=== PATIENT | female | born 1990 | race Caucasian/White ===

== ENCOUNTER 2023-11-08 10:50 | Inpatient (IN) ==
[2023-11-08] MEDS ORDERED: BUTORPHANOL TARTRATE 2 MG/ML VIAL IV PRN (11:38)
[2023-11-08] MEDS ORDERED: LIDOCAINE 1% LOCAL 20 ML VIAL INFIL PRN (11:38)
[2023-11-08] MEDS ORDERED: ACETAMINOPHEN 325 MG TAB PO PRN (11:38)
--- NOTE | 2023-11-08 11:45 | History & Physical Report ---
Date of Service November 08, 2023 Assessment & Plan (1) premature rupture of membranes: Plan: 32-year-old G1, P0 at 37 weeks and 1 day gestation presenting today with premature rupture of membranes since 6:30 AM this morning, Vital signs stable afebrile, No signs of active labor, heart rate reassuring, GBS negative, Plan to admit, monitor, labs, discussed induction of labor and agents as IV oxytocin versus p.o. prostaglandin, discussed the difference and ambulation during labor. She desires to ambulate and prefers p.o. Cytotec, All questions were answered. (2) Obesity affecting in third trimester, antepartum: (3) History of migraine: History of Present Illness Primary Care Provider: Radha Hawthorne DO Patient is a 32-year-old G1, P0 at 37 weeks and 1 day gestation who has been leaking since 6:30 AM this morning. It happens when she moves around spontaneously and has been between clear and pinkish in color. She soaked about 3 pads this morning. She denies contractions or abdominal pain, fever chills, headaches, change in her vision, nausea vomiting. Her has been uncomplicated except, 1. Obesity during , 2. history of Migraines, 3. removed history of asthma, childhood no recent medication use. 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 no history of STDs, no history of chlamydia, gonorrhea, herpes Review of Systems as per Subjective / HPI Physical Exam Constitutional: WD/WN, vitals as above Gastrointestinal (Abdomen): normal bowel sounds, soft, nontender, no hepatosplenomegaly Genitourinary: normal external appearance OB Exam Abdomen: + vertex Manual OB Exam: + cervical dilation 1 cm, + cervical effacement 50% and + station -2 OB Exam Monitor Tracing: + external uterine monitor used and + category I AmniSure positive Results & Data Vital Signs (Past 12 Hours) Vital Signs Pulse BP 11/08/23 11:06 85 128/73 (1) premature rupture of membranes PROM onset of labor timing: unspecified duration between rupture of membranes and onset of labor Qualified Code(s): O42.919 - premature rupture of membranes, unspecified as to length of time between rupture and onset of labor, unspecified trimester (2) Obesity affecting in third trimester, antepartum Obesity type affecting : other obesity Qualified Code(s): O99.213 - Obesity complicating , third trimester; E66.8 - Other obesity
[2023-11-08] MEDS ORDERED: OXYTOCIN 30 UNITS/NSS 30 UNITS/500 ML BAG IV PRN (11:46)
[2023-11-08] MEDS: LACTATED RINGER'S 1,000 ML IV PRN (12:00)
[2023-11-08 12:02] LABS: Hematocrit (blood only) 32.9 % (37.0-47.0); Mean Corpuscular Hemoglobin 30.2 pg (25.0-34.0); Mean Corpuscular Hgb Conc 33.4 g/dL (32.0-36.0); Mean Corpuscular Volume 90.4 fL (80.0-100.0); Mean Platelet Volume 12.7 fL (9.4-12.4); Platelet Count 227 K/uL (130-400); RDW Standard Deviation 42.7 fL (36.4-46.3); Red Blood Count 3.64 M/uL (4.20-5.40); White Blood Count 11.92 K/ul (4.8-10.8)
[2023-11-08] MEDS: miSOPROStoL 50 MCG TAB PO SCH (13:59)
--- OUTSIDE RECORDS SUMMARY | 2023-11-08 13:59 | External Medical Summary | Summary of Care ---
Author Name Unknown Organization [facility] Address [address] [place] [address] Phone [phone] Care Team Providers Care Automatic Embroidery Machine Tender Name Role Phone John PaulRadha fox Manju DO Primary Care Provider [phone] Reason for Visit * Reason Comments NEW PATIENT Encounter Details Date Type Department Care Team (Late st Contact Info) Description 10/28/2023 12:30 PM EDT Office Visit Gynecology/Obstetric s [facility] [address] [place] [address] Kim Atkinson CRNP [address] [place] [address] Decreased movements in third trimester, single or unspecified fetus*; Supervision of normal first , antepartum; Obesity affecting in third trimester, unspecified obesity type Allergies No known active allergiesdocumented as of this encounter (statuses as of 10/28/2023) Medications Medication Sig Dispensed Refills Start Date End Date Status Albuterol Sulfate HFA 108 (90 Base) MCG/ACT Inhalation Aerosol SolutionIndications: Dyspnea Inhale 2 Puffs by mouth 4 times a day as needed for Shortness of Breath. 18 g 5 11/22/2020 Active Famotidine 40 MG Oral Tablet (Pepcid) Take 1 Tablet by mouth at bedtime. 90 Tablet 3 01/17/2023 Active 28-0.8 MG Oral Tablet Take by mouth. Active Mag-200 200 MG Oral Tablet (Magnesium Oxide -Mg Supplement) Take by mouth. Active documented as of this encounter (statuses as of 10/28/2023) Active Problems Problem Noted Date Diagnosed Date Anxiety 07/11/2023 Supervision of normal first , antepartu m 04/23/2023 Obesity affecting 04/23/2023 Overview: Class 1 The patient's pre-gravid BMI is 31.74. Iron deficiency anemia 01/17/2023 KAVIN (generalized anxiety disorder) 01/17/2023 Screening for lipid disorders 01/17/2023 Intractable chronic migraine without aura and without status migrainosus 10/16/2021 Cervicalgia 10/16/2021 Morbid obesity due to excess calories 03/09/2021 Mild intermittent asthma without complication Gastroesophageal reflux disease without esophagi tis 03/21/2019 Other atopic dermatitis 11/26/2017 Migraine without aura 01/07/2004 Overview: Nortriptyline caused agitation Estimated Date of Delivery Comme nts Yes 11/23/2023 Based on last me nstrual period of 02/16/2023 (Approximate) documented as of this encounter (statuses as of 10/28/2023) Resolved Problems Problem Noted Date Diagnosed Date Resolved Date Body mass index (BMI) of 40. 0 to 44.9 in adult 11/14/2020 10/04/2023 Overview: Per Obesity protocol Chronic cholecystitis 07/06/20132018 Infectious mononucleosis 07/18/2011 OBESITY, PEDIATRIC, BMI 95-98TH PERCENTILE 05/26/2009 10/17/2017 Overview: Per Obesity Taxonomy Family history of diabetes mellitus 11/30/2008 10/17/2017 ADVANCE DIRECTIVE INFORMATION 02/09/2005 10/17/2017 Overview: Not applicable (under age of 18) OBESITY, UNSPECIFIED 02/09/2005 010 Overview: Per Obesity Taxonomy OTALGIA, RIGHT 11/24/2001 10/17/2017 DYSFUNCT EUSTACHIAN TUBE 11/24/2001 ACUTE URI NOS 11/24/2001 04/22/2008 Overview: Resolved per Benign Acute Dxs Protocol #3 NO SIGNIFICANT MED HX 2017 documented as of this encounter (statuses as of 10/28/2023) Immunizations Name Administration Dates Next Due DTaP Dipth/Tet/Acell Pertussis (Infanrix), Peds 01/19/1997,03/12/1994,06/12/1993,04/17,02/13/1993 HPV Vaccine, 4-Valent 01/21/2007,09/11/2006,11/2006 Haemophilius B (HIB), unspecified 1994,06/12/1993,04/17/1993,02/13 Hepatitis B Vaccine 10/01/1994,06/20/1993,1992 MMR - Measles/Mumps/Rubella Vaccine 01/19/1997,0 03/12/1994 Meningococcal Conjugate Vacc ine (Menactra/Menveo) 05/13/2007 OPV - Polio Virus Vaccine (Oral) 997,03/12/1994,04/17/1993,02/13 PPD 12/24/2018, 9,01/15/2017,07/24 TD, Preservative Free 06/06/2009 TDAP (age 10 and older)(Boostrix) 09/19/2023,,02/09/2005 Varicella Vaccine (Chicken Pox) 05/13/2007,10/01 documented as of this encounter Social History Tobacco Use Types Packs/Day Years Used Date Smoking Tobacco: Never Smokeless Tobacco: Never Comments:Non-smoking househo ld. Alcohol Use Standard Drinks/Week Comments Not Currently 0 (1 standard drink = 0.6 oz pur e alcohol) occassional PHQ-2 Answer Date Recorded PHQ Adult Total Score 1 10/16/2021 Hunger Vital Sign Answer Date Recorded Within the past 12 months, y ou worried that your food would run out before you got the money to buy more. Never true 04/23/19 24 Within the past 12 months, t he food you bought just didn't last and you didn't have money to get more. Never true 04/23/2023 [place] Depression Scale Answer Date Recorded [place] Depression Scale Total 7 08/30/2023 The thought of harming myself has occurred to me . Never 08/30/2023 Childcare Answer Date Recorded Do you feel overwhelmed with taking care of a child, family member or friend? No 04/23/2023 Does your family need help f inding childcare? (Household - for ages 0-17 years) Not on file 04/23/2023 Clothing Answer Date Recorded Have you been unable to get clothing when it was really needed? No 04/23/2023 Is your family able to get c lothes or diapers when needed? (Household - for ages 0-17 years) Not on file 04/23/2023 Personal Safety Answer Date Recorded Do you feel unsafe or have concerns for your saf ety? No 04/23/2023 Do you have concerns for you r family's safety? (Household - for ages 0-17 years) Not on file 04/23/2023 Utilities Answer Date Recorded Do you have trouble paying y our heating, water, or electric bill? No 04/23/2023 Is your family able to pay t he heat, water, or electric bill? (Household - for ages 0-17 years) Not on file 04/23/2023 Does your family have access to good internet? (Household - for ages 0-17 years) Not on file 04/23/2023 Employment Status Answer Date Recorded Are you unemployed or without regular income? No 04/23/2023 Does the [facility] have a [facility] source [facility] income? (Household - for ages 0-17 years) Not on file 04/23/2023 Social Connections Answer Date Recorded How often do you feel lonely or isolated from th ose around you? Never 04/23/2023 Financial Resource Strain Answer Date R ecorded Do you have any trouble payi ng for your medications, or do you think you might in the future? No 04/23/2023 Does your family have troubl e paying for medicine? (Household - for ages 0-17 years) Not on file 04/23/2023 Transportation Needs Answer Date Record ed READ ONLY Do you have troubl e getting a ride to medical visits or work? Never True 04/23/2023 Does your family have a hard time getting a ride to doctors visits? (Household - for ages 0-17 years) Not on file 04/23/2023 Has lack of transportation k ept you from medical appointments, meetings, work, or from getting things needed for daily living? Check all that apply. (Adult - for ages 18 years and over) Not on file 04/23/2023 Do you (or your family) have trouble finding or paying for a ride (transportation)? (Household - for ages 0-17 years) Not on file 04/23/2023 Housing Stability Answer Date Recorded Do you currently live in a s helter or have no steady place to sleep at night? No 04/23/2023 READ ONLY Do you think you a re at risk of becoming homeless? No 04/23/2023 Does your family worry about paying for your home or becoming homeless? (Household - for ages 0-17 years) Not on file 0 04/23/2023 Are you homeless or worried that you might be in the future? (Adult - for ages 18 years and over) Not on file Are you (or your family) hilda eless or worried that you might be in the future? (Household - for ages 0-17 years) Not on file Food Insecurity Answer Date Recorded Do you need food for this week? No 04/23/2023 Are you able to get enough f ood for your family? (Household - for ages 0-17 years) Not on file 04/23/2023 Does your family need food t his week? (Household - for ages 0-17 years) Not on file 04/23/2023 Do you always have enough fo od for your family? (Household - for ages 0-17 years) Not on file 04/23/2023 Estimated Date of Delivery Comme nts Yes 11/23/2023 Based on last me nstrual period of 02/16/2023 (Approximate) Sex and Gender Information Value Date Recorded Sex Assigned at Female 03/21/2019 8:44 AM EST Gender Identity Female 03/21/2019 8:44 AM EST Sexual Orientation Straight 03/21/2019 8: 44 AM EST Job Start Date Occupation Industry Not on file Not on file Not on file documented as of this encounter Last Filed Vital Signs Vital Sign Reading Time Taken Comments Blood Pressure 122/74 10/28/2023 1:11 PM EDT Pulse - - Temperature - - Respiratory Rate - - Oxygen Saturation - - Inhaled Oxygen Concentration - - Weight 104.8 kg (231 lb) 10/28/2023 1:11 PM EDT Height - - Body Mass Index 39.65 08/30/2023 10:59 AM EDT documented in this encounter Progress Notes * Kim Atkinson CRNP - 10/28/2023 12:44 PM EDT ASSESSMENT assessment with Non-stress Test completed on 10/28/2023 at 36.2 weeks gestation for indicationof decreased movement heart baseline: 150 bpm Variability: Moderate Decelerations: absent Accelerations: absent Contractions: None NST start time: 1903 (time incorrect on EFM) NST stop time: 1929 NST strip reviewed, interpreted, and approved by OB provider, TERI Gutierrez . NST strip stored in clinic storage file Requests a cervical exam - reports a lot of pelvic pressure. 2/50% Was having cramping, some sharp, since ; no ctx on EFM. No LOF/bleeding. Has felt more movement since arriving to this office today. Has labor instructions, reviewed when to call. Advised to rest for today and push fluids. GBS today. Return in 1 week. Box Fabricator Documentation Provider requested jewel bearing turner. Name of jewel bearing turner: TERI Muller documented in this encounter Plan of Treatment Upcoming Encounters Date Type Department Care Team (Late st Contact Info) Description 11/01/2023 9:30 AM EDT Pharmacy Pharmacy, [place] [address] [place] [address] Clinic, [facility] [address] [facility] [place] [address] 11/08/2023 1:45 PM EDT Office Visit Gynecology/Obstetrics [facility] [address] [facility] [place] [address] Odalys Jaimes PA-C [address] [place] [address] Pending Results Name Type Priority Associated Diagnoses Date /Time GROUP B STREP CULTURE/PCR Lab Routine Supervision of normal first , antepartum 10/28/2023 1:25 PM EDT Scheduled Orders Name Type Priority Associated Diagnoses Orde r Schedule GROUP B STREP CULTURE/PCR Lab Routine Supervision of normal first , antepartum Expected: 10/28/2023, Expires: 10/27/2024 Health Maintenance Due Date Last Done Comments Pneumococcal Vaccine: Pediatrics (0 to 5 Years) and At-Risk Patients (6 to 64 Years) (1 of 2 - PCV) 1998 Depression Screening 10/16/2022 10/16/2021 COVID-19 Vaccine (1 - season) 2022 Influenza Vaccine (FLU shot) (#1) 2023 Pap Smear 04/23/2026 04/23/2023, 08/02, 05/25/2016, Additional history exists Cervical Cancer Screening 04/23/2028 HPV/Co-Test 04/23/2028 04/23/2023 DTaP,Tdap,and Td Vaccines (10 - Td or Tdap) 09/18/2033 09/19/2023, 01/25/2021, 06/06/2009, Additional history exists Hepatitis B Vaccine Completed 10/01/1994, 06/20/1993, 06/20/1993, Additional history exists HPV (Gardasil) Vaccine Completed 7, 09/11/2006, 07/10/2006 MENINGOCOCCAL (MENACTRA/MENVEO) Aged Out 05/13/2007 No longer eligible based on patient's age to complete this topic documented as of this encounter Medical Devices Not on filedocumented as of this encounter Visit Diagnoses Diagnosis Decreased movements in third trimester, single or unspecified fetus- Primary Supervision of normal first , antepartum Obesity affecting in third trimester, unspecified obesity type documented in this encounter Care Teams Automatic Embroidery Machine Tender Relationship Specialty Start Date End Date Radha Hawthorne DO [address] [place] [address] PCP - General Family Medicine 02/18/18 documented as of this encounter
--- OUTSIDE RECORDS SUMMARY | 2023-11-08 13:59 | External Medical Summary | Summary of Care ---
Author Name Unknown Organization [facility] Address [address] [place] [address] Phone [phone] Care Team Providers Care Aircraft Assembler Name Role Phone Radha Hawthorne DO Primary Care Provider [phone] Reason for Visit * Reason Comments Outpatient Testing Encounter Details Date Type Department Care Team (Late st Contact Info) Description 10/28/2023 1:30 PM EDT Laboratory Laboratory, [facility] [address] [place] [phone] [facility] [address] [place] [address] Iron deficiency anemia, unspecified iron deficiency anemia type Allergies No known active allergiesdocumented as [...] 10/28/2023) Immunizations Name Administration Dates Next Due HPV Vaccine, 4-Valent 01/21/2007,09/11/2006,11/2006 Meningococcal Conjugate Vacc ine (Menactra/Menveo) 05/13/2007 PPD 12/24/2018, 9,01/15/2017,07/24 TD, Preservative Free 06/06/2009 TDAP (age 10 and older)(Boostrix) 09/19/2023, Varicella Vaccine (Chicken Pox) 05/13/2007 documented as of this encounter Social History [...] money to buy more. Never true 04/23/19 Within the past 12 months, t he food you bought just didn't last and you didn't have money to get more. Never true 04/23/2023 [place] Depression Scale Answer Date Recorded [place] Depression Scale Total 7 08/30/2023 The thought [...] No 04/23/2023 Does the household have a re gular source of income? (Household - for ages [...] on file documented as of this encounter Plan of Treatment Upcoming Encounters Date Type Department Care Team (Late st Contact Info) Description 11/01/2023 9:30 AM EDT Pharmacy Pharmacy, [place] [address] [place] [address] Clinic, [place] [address] [place] [facility] [place] [address] 11/08/2023 1:45 PM EDT Office Visit Gynecology/Obstetrics [facility] [address] [place] [address] Odalys Jaimes PA-C [address] [place] [address] Pending Results Name Type Priority Associated Diagnoses Date /Time CBC WITH WBC DIFFERENTIAL Lab Routine Iron deficiency anemia, unspecified iron deficiency anemia type 10/28/2023 1:30 PM EDT IRON SCREEN, INCLUDING TIBC Lab Routine Iron deficiency anemia, unspecified iron deficiency anemia type 10/28/2023 1:30 PM EDT FERRITIN Lab Routine Iron deficiency anemia, unspecified iron deficiency anemia type 10/28/2023 1:30 PM EDT RETICULOCYTE PANEL Lab Routine Iron deficiency anemia, unspecified iron deficiency anemia type 10/28/2023 1:30 PM EDT VITAMIN B12 Lab Routine Iron deficiency anemia, unspecified iron deficiency anemia type 10/28/2023 1:30 PM EDT FOLIC ACID Lab Routine Iron deficiency anemia, unspecified iron deficiency anemia type 10/28/2023 1:30 PM EDT CBC Lab Routine Iron deficiency anemia, unspecified iron deficiency anemia type 10/28/2023 1:30 PM EDT DIFFERENTIAL, AUTOMATED Lab Routine Iron deficiency anemia, unspecified iron deficiency anemia type 10/28/2023 1:30 PM EDT Health Maintenance Due Date Last Done Comments Pneumococcal Vaccine: Pediatrics (0 to 5 Years) and At-Risk Patients (6 to 64 Years) (1 of 2 - PCV) 1998 Depression Screening 10/16/2022 10/16/2021 COVID-19 Vaccine ( - 2022- season) 2022 Influenza Vaccine (FLU shot) (#1) [...] as of this encounter Visit Diagnoses Diagnosis Iron deficiency anemia, unspecified iron deficiency anemia type documented in this encounter Care Teams Aircraft Assembler Relationship Specialty Start Date End Date Radha Hawthorne DO [address] [place] [address] PCP - General Family Medicine 02/18/18 documented as of this encounter
--- OUTSIDE RECORDS SUMMARY | 2023-11-08 14:00 | External Medical Summary ---
Author Name Unknown Address Unknown Organization [facility] - [address] [place] [address] Laboratory Report Ordering Provider Test Date Status JAYME FINLEY 10/28/2023 13:30:21 Final Observation Date Value Abnormality Reference (Units ) Status Folic Acid 10/28/2023 13:30:21 19.0 >4.5 (ng/ mL) Final Performing Location [facility] - [address] [place] [address]
--- OUTSIDE RECORDS SUMMARY | 2023-11-08 14:00 | External Medical Summary | Summary of Care ---
Author Name Unknown Organization [facility] Address [address] [place] [address] Phone [phone] Care Team Providers Care Opal Polisher Name Role Phone John PaulRadha fox Manju DO Primary Care Provider [phone] Reason for Visit * Reason Comments NEW PATIENT Encounter Details Date Type Department Care Team (Late st Contact Info) Description 10/28/2023 12:30 PM EDT Office Visit Gynecology/Obstetric s [facility] [address] [place] [address] Kim Atkinson CRNP [address] [facility] [place] [address] Decreased movements in third trimester, single or [...] money to get more. Never true 04/23/2023 [place] Depression Scale Answer Date Recorded [place] Depression Scale Total 7 08/30/2023 The thought [...] No 04/23/2023 Does the household have a [facility] source of income? (Household - for ages [...] fluids. GBS today. Return in 1 week. Demurrage Worker Documentation Provider requested drill press operator. Name of drill press operator: TERI Muller documented in this encounter Plan of Treatment Upcoming Encounters Date Type Department Care Team (Late st Contact Info) Description 10/28/2023 1:30 PM EDT [facility] [address] [facility] [place] [place] [phone] Remy Downs [address] [place] [address] Arrived 11/01/2023 9:30 AM EDT Pharmacy Pharmacy, [address] [place] [address] Clinic, [facility] [address] [place] [address] Pending Results Name Type Priority Associated Diagnoses [...] Screening 10/16/2022 10/16/2021 COVID-19 Vaccine ( - season) 2022 Influenza Vaccine (FLU shot) [...] type documented in this encounter Care Teams Opal Polisher Relationship Specialty Start Date End Date Radha Hawthorne DO [address] [place] [address] PCP - General Family Medicine 02/18/18 documented as of this encounter
--- OUTSIDE RECORDS SUMMARY | 2023-11-08 14:00 | External Medical Summary ---
Author Name Unknown Address Unknown Organization [facility] - [address] [place] [address] Laboratory Report Ordering Provider Test Date Status JAYME FINLEY 10/28/2023 13:30:21 Final Observation Date Value Abnormality Reference (Units ) Status Iron 10/28/2023 13:30:21 70 33-151 (ug /dL) Final Iron-binding capacity 10/28/2023 13:30:21 335 250-425 (ug/dL) Final Transferrin Sat % 10/28/2023 13:30:21 21 15 -55 (%) Final Performing Location [facility] [address] [facility] [address]
--- OUTSIDE RECORDS SUMMARY | 2023-11-08 14:00 | External Medical Summary ---
Author Name Unknown Address Unknown Organization [facility] [place] [address] [facility] [address] Laboratory Report Ordering Provider Test Date Status JAYME FINLEY 10/28/2023 13:30:21 Final Observation Date Value Abnormality Reference (Units ) Status SYNC LEUKOCYTES IN BLOOD BY AUTOMATED COUNT 10/28/2023 13:30:21 11.81 Above high normal 4.00-10.80 (K/uL) Final Segs 10/28/2023 13:30:21 77.1 Above high normal 40.0-75.0 (%) Final Lymphs % 10/28/2023 13:30:21 16.5 Below low normal 18.0-42.0 (%) Final Monos 10/28/2023 13:30:21 5.2 1.0-11.0 (%) Final Eosinophils 10/28/2023 13:30:21 0.5 0.0-6.0 (%) Final Basos 10/28/2023 13:30:21 0.2 0.0-2.0 (%) Final Immature Granulocyte, Percent 10/28/2023 13:30:21 0.5 0.0-2.0 (%) Final Absolute Segs 10/28/2023 13:30:21 9.11 Above high normal 1.80-7.70 (K/uL) Final Lymphs, absolute 10/28/2023 13:30:21 1.95 1.00-4.80 (K/ul) Final Monos, Abs 10/28/2023 13:30:21 0.61 0.00-1.10 (K/uL) Final Eos, Abs 10/28/2023 13:30:21 0.06 0.00-0.70 (K/uL) Final Basos, Abs 10/28/2023 13:30:21 0.02 0.00-0.20 (K/uL) Final Immature Granulocytes, Number 10/28/2023 13:30:21 0.06 0.00-0.20 (K/uL) Final Performing Location [facility] [place] [facility] [address] [facility] [address]
--- OUTSIDE RECORDS SUMMARY | 2023-11-08 14:00 | External Medical Summary | Summary of Care ---
Author Name Unknown Organization [facility] Address [address] [place] [address] Phone [phone] Care Team Providers Care Line Department Supervisor Name Role Phone Radha Hawthorne Manju DO Primary Care Provider [phone] Encounter Details Date Type Department Care Team (Late st Contact Info) Description 10/12/2023 Orders Only PATIENT PORTAL DO NOT DELETE THIS DEPT USED BY [place] [id number] Allergies No known active allergiesdocumented as of this encounter (statuses as of 10/12/2023) Medications Medication Sig Dispensed Refills Start Date [...] as of this encounter (statuses as of 10/12/2023) Active Problems Problem Noted Date Diagnosed Date [...] as of this encounter (statuses as of 10/12/2023) Resolved Problems Problem Noted Date Diagnosed Date [...] as of this encounter (statuses as of 10/12/2023) Immunizations Name Administration Dates Next Due HPV Vaccine, 4-Valent 01/21/2007,09/11/2006,0511/2006 Meningococcal Conjugate Vacc ine (Menactra/Menveo) 05/13/2007 PPD [...] money to get more. Never true 04/23/2023 [place] Depression Scale Answer Date Recorded [place] Depression Scale Total 7 08/30/2023 The thought [...] Care Team (Late st Contact Info) Description 10/16/2023 2:15 PM EDT Office Visit Gynecology/Obstetrics [facility] [address] [place] [address] Lianne Shelby CRNP [address] [place] [place] [address] 10/25/2023 9:30 AM EDT Pharmacy Pharmacy, [place] [address] [place] [address] Clinic, [facility] [address] [place] [address] Health Maintenance Due Date Last Done Comments Pneumococcal Vaccine: Pediatrics (0 to 5 Years) and At-Risk Patients (6 to 64 Years) (1 of 2 - PCV) 1998 Depression Screening 10/16/2022 10/16/2021 COVID-19 Vaccine ( - 2022-24 season) 2022 Influenza Vaccine (FLU shot) (#1) [...] Not on filedocumented as of this encounter Care Teams Line Department Supervisor Relationship Specialty Start Date End Date Radha Hawthorne DO [address] [facility] [place] [address] PCP - General Family Medicine 02/18/18 documented as of this encounter
--- OUTSIDE RECORDS SUMMARY | 2023-11-08 14:00 | External Medical Summary ---
Author Name Unknown Address Unknown Organization K01:[facility] [place] [facility] [place] [facility] [address] Laboratory Report Ordering Provider Test Date Status JAYME FINLEY 10/28/2023 13:30:21 Final Observation Date Value Abnormality Reference (Units ) Status WBC, Total 10/28/2023 13:30:21 11.81 Above high normal 4.00-10.80 (K/uL) Final RBC 10/28/2023 13:30:21 3.60 3.85-5.15 (M/uL) Final Hemoglobin 10/28/2023 13:30:21 10.8 Below low normal 12.0-15.3 (g/dL) Final HCT 10/28/2023 13:30:21 33.4 Below low normal 36.0-45.2 (%) Final MCV 10/28/2023 13:30:21 92.8 81.5-97.5 (fL) Final MCH 10/28/2023 13:30:21 30.0 27.0-34.0 (pg) Final MCHC 10/28/2023 13:30:21 32.3 32.0-36.0 (g/dL) Final RDW 10/28/2023 13:30:21 13.0 11.5-15.5 (%) Final Platelets 10/28/2023 13:30:21 229 140-400 (K/uL) Final MPV 10/28/2023 13:30:21 13.0 6.6-11.1 (fL) Final Nucleated erythrocytes/100 leukocytes [Ratio] in Blood by Automated count 10/28/2023 13:30:21 0 <=0 (/100 WBCs) Final Performing Location [facility] [place] [address] [facility] [address]
--- OUTSIDE RECORDS SUMMARY | 2023-11-08 14:00 | External Medical Summary ---
Author Name Unknown Address Unknown Organization K01:[facility]ORY [facility] [place] - [facility] [address] [facility] [address] Laboratory Report Ordering Provider Test Date Status JAYME FINLEY 10/28/2023 13:30:21 Final Observation Date Value Abnormality Reference (Units ) Status Retic, % (auto) 10/28/2023 13:30:21 2.64 Above high normal 0.80-1.90 (%) Final Reticulocytes, Absolute 10/28/2023 13:30:21 95.0 31.3-100.1 (K/uL) Final Reticulocyte fraction, immature 10/28/2023 13:30:21 23.3 Above high normal 2.5-20.6 (%) Final Reticulocyte HGB 10/28/2023 13:30:21 33.0 29.7-37.4 (pg) Final Performing Location [facility]ORY [facility] [place] - [address] [facility] [address]
--- OUTSIDE RECORDS SUMMARY | 2023-11-08 14:00 | External Medical Summary | Summary of Care ---
Author Name Unknown Organization [facility] Address [address] [place] [address] Phone [phone] Care Team Providers Care Hand Loom Weaver Name Role Phone Radha Hawthorne DO Primary Care Provider [phone] Reason for Visit * Reason Comments Status Check Encounter Details Date Type Department Care Team (Late st Contact Info) Description 10/25/2023 9:30 AM EDT Pharmacy Pharmacy, [place] [address] [place] [address] Clinic, [place] [address] [place], [place] [id number] Iron deficiency anemia, unspecified iron deficiency anemia type* Allergies No known active allergiesdocumented as of this encounter (statuses as of 10/25/2023) Medications Medication Sig Dispensed Refills Start Date [...] as of this encounter (statuses as of 10/25/2023) Active Problems Problem Noted Date Diagnosed Date [...] as of this encounter (statuses as of 10/25/2023) Resolved Problems Problem Noted Date Diagnosed Date [...] as of this encounter (statuses as of 10/25/2023) Immunizations Name Administration Dates Next Due HPV [...] money to get more. Never true 04/23/2023 [place] Depression Scale Answer Date Recorded [place] Depression Scale Total 7 08/30/2023 The thought [...] on file documented as of this encounter Progress Notes * Kylah Hummel fast food fry cook - 10/25/2023 10:22 AM EDT Attempt 1 Patient is due for Anemia clinic labs [facility] reminder message sent today Follow up for results Thank you, Kylah Hummel Architecture Manager [facility] 10/25/2023,10:22 AM documented in this encounter Plan of Treatment Upcoming Encounters Date Type Department Care Team (Late st Contact Info) Description 10/30/2023 3:15 PM EDT Office Visit Gynecology/Obstetrics [facility] [address] [place] [place] [address] Lianne Shelby CRNP [address] [place] [address] 11/01/2023 9:30 AM EDT Pharmacy Pharmacy, [place] [address] [place] [address] Clinic, [place] [address] [place] [address] Health Maintenance Due Date Last Done Comments [...] Iron deficiency anemia, unspecified iron deficiency anemia type- Primary documented in this encounter Care Teams Hand Loom Weaver Relationship Specialty Start Date End Date Radha Hawthorne DO [address] [place] [address] PCP - General Family Medicine 02/18/18 documented as of this encounter
--- OUTSIDE RECORDS SUMMARY | 2023-11-08 14:00 | External Medical Summary ---
Author Name Unknown Address Unknown Organization K01:LABORATORY [facility] - [address] [place] [address] Laboratory Report Ordering Provider Test Date Status JAYME FINLEY 10/28/2023 13:30:21 Final Observation Date Value Abnormality Reference (Units ) Status Vitamin B12 10/28/2023 13:30:21 207 233-1449 (pg/mL) Final Performing Location [facility] - [address] [place] [address]
--- OUTSIDE RECORDS SUMMARY | 2023-11-08 14:00 | External Medical Summary | Summary of Care ---
Author Name Unknown Organization [facility] Address [address] [place] [address] Phone [phone] Care Team Providers Care Ward Secretary Name Role Phone Radha Hawthorne DO Primary Care Provider [phone] Reason for Visit * Reason Comments Return Visit Encounter Details Date Type Department Care Team (Late st Contact Info) Description 10/16/2023 2:15 PM EDT Office Visit Gynecology/Obstetric s [facility] [address] [facility] [place] [address] Lianne Shelby CRNP [address] [place] [address] Supervision of normal first , antepartum* Allergies No known active allergiesdocumented as of this encounter (statuses as of 10/16/2023) Medications Medication Sig Dispensed Refills Start Date [...] as of this encounter (statuses as of 10/16/2023) Active Problems Problem Noted Date Diagnosed Date [...] as of this encounter (statuses as of 10/16/2023) Resolved Problems Problem Noted Date Diagnosed Date [...] as of this encounter (statuses as of 10/16/2023) Immunizations Name Administration Dates Next Due HPV [...] money to get more. Never true 04/23/2023 [place] Depression Scale Answer Date Recorded [place] Depression Scale Total 7 08/30/2023 The thought [...] Sign Reading Time Taken Comments Blood Pressure 122/72 10/16/2023 2:18 PM EDT Pulse - - Temperature - - Respiratory Rate - - Oxygen Saturation - - Inhaled Oxygen Concentration - - Weight 107.4 kg (236 lb 12.8 oz) 10/16/2023 2:18 PM EDT Height - - Body Mass Index 40.65 08/30/2023 10:59 AM EDT documented in this encounter Progress Notes * Lianne Shelby CRNP - 10/16/2023 2:32 PM EDT 34w4d BLE edema started a few days ago- has been sitting at in-service all week. No other concerns. Baby is active. No contractions, bleeding, LOF. TERI Dominguez * Yulissa Donato MED ASSIST - 10/16/2023 2:18 PM EDT 34w4d Swelling in both feet. Sharp stabbing pain either side lower pelvic area when getting up from laying or sitting. Denies vaginal bleeding/rom + movements + nausea, mild occasionally documented in this encounter Plan of Treatment Upcoming Encounters Date Type Department Care Team (Late st Contact Info) Description 10/25/2023 9:30 AM EDT Pharmacy Pharmacy, [address] [address] Clinic, [address] [address] 10/30/2023 3:15 PM EDT Office Visit Gynecology/Obstetrics [facility] [address] [facility] [address] Lianne Shelby CRNP [address] [place] [address] Health Maintenance Due Date Last Done Comments [...] Additional history exists HPV (Gardasil) Vaccine Completed , 09/11/2006, 07/10/2006 MENINGOCOCCAL (MENACTRA/MENVEO) Aged Out 05/13/2007 No longer eligible based on patient's age to complete this topic documented as of this encounter Medical Devices Not on filedocumented as of this encounter Visit Diagnoses Diagnosis Supervision of normal first , antepartum- Primary documented in this encounter Care Teams Ward Secretary Relationship Specialty Start Date End Date Radha Hawthorne DO [address] [place] [address] PCP - General Family Medicine 02/18/18 documented as of this encounter
--- OUTSIDE RECORDS SUMMARY | 2023-11-08 14:00 | External Medical Summary | Summary of Care ---
Author Name Unknown Organization [facility] Address [address] [place] [address] Phone [phone] Care Team Providers Care Ambulance Dispatcher Name Role Phone John PaulRadha fox Manju DO Primary Care Provider [phone] Reason for Visit * Reason Comments IV Therapy Infed Infusion Encounter Details Date Type Department Care Team (Latest Contact Info) Description 09/26/2023 12:00 PM EDT Hem/Onc Treatment Hematology/Oncology Treatment, [address] [address] [place], Chair [address] Hem Onc [address] [address] Iron deficiency anemia, unspecified iron deficiency anemia type* Allergies No known active allergiesdocumented as of this encounter (statuses as of 10/11/2023) Medications Medication Sig Dispensed Refills Start Date End Date Status Albuterol Sulfate HFA 108 (90 Base) MCG/ACT Inhalation Aerosol SolutionIndication s:Dyspnea Inhale 2 Puffs by mouth 4 times a day as needed for Shortness of Breath. 18 g 5 11/22/2020 Active Famotidine 40 MG Oral Tablet (Pepcid) Take 1 Tablet by mouth at bedtime. 90 Tablet 3 01/17/2023 Active 28-0.8 MG Oral Tablet Take by mouth. Active Ferrous Sulfate 325 (65 Fe) MG Oral Tablet (FeroSul) Take 1 Tablet by mouth every other day. 45 Tablet 3 01/17/2023 10/04/2023 documented as of this encounter (statuses as of 10/11/2023) Active Problems Problem Noted Date Diagnosed Date [...] as of this encounter (statuses as of 10/11/2023) Resolved Problems Problem Noted Date Diagnosed Date [...] as of this encounter (statuses as of 10/11/2023) Immunizations Name Administration Dates Next Due DTaP [...] money to get more. Never true 04/23/2023 [place] Depression Scale Answer Date Recorded [place] Depression Scale Total 7 08/30/2023 The thought [...] No 04/23/2023 Does the household have a [facility] source of income? (Household - for [...] Sign Reading Time Taken Comments Blood Pressure 106/71 09/26/2023 1:15 PM EDT Pulse 82 09/26/2023 1:15 PM EDT Temperature 36.3 C (97.3 F) 09/26/2023 12:12 PM E DT Respiratory Rate 16 09/26/2023 1:15 PM EDT Oxygen Saturation 97% 09/26/2023 1:15 PM EDT Inhaled Oxygen Concentration - - Weight - - Height - - Body Mass Index - - documented in this encounter Nursing Notes * Domonique Ewing RN - 09/26/2023 1:53 PM EDT Patient discharged in good condition, voiced no complaints or issues, tolerated infusion well. * Domonique Ewing RN - 09/26/2023 12:43 PM EDT Patient has no complaints or reaction from test dose. * Domonique Ewing RN - 09/26/2023 12:26 PM EDT Patient ambulatory to chair 10 Patient 32 weeks , denies any issues or complaints. Patient educated on iron infusion, verbalized understanding. Safety and Risk for Injury Patient will remain free from injury. Ensure appropriate safety devices are available. Provide and maintain safe environment. Goals: patient will remain injury free Possible barriers to meeting goals: ambulation with IV pole, increase risk of fall Stability of the patient: Moderately stable - low risk of patient condition declining or worsening Summary regarding today's goals: Met: patient remained free of injury Patient instructed on use of heat and massage functions where applicable. Patient shown how to operate the heat function of the chair and to alert nursing staff if the chair feels too warm. Patient instructed on the risk of potential matt while using the heat function. documented in this encounter Plan of Treatment Upcoming Encounters Date Type Department Care Team (Late st Contact Info) Description 10/16/2023 2:15 PM EDT Office Visit Gynecology/Obstetrics [facility] [address] [place] [address] Lianne Shelby CRNP [address] [place] [address] 10/25/2023 9:30 AM EDT Pharmacy Pharmacy, [place] [address] [place], [place] [id number] Clinic, Anemia [address] [place] [address] Health Maintenance Due Date Last Done Comments [...] anemia type- Primary documented in this encounter Administered Medications Inactive Administered Medications - up to 3 most recent administrations Medication Order MAR Action Action Date Dose Rate Site Iron Dextran (Infed) 975 mg in NSS 250 mL INFUSION 975 mg, IV Piggyback, ONCE, 1 dose, On Maribel 09/26/23 at 1330, Administer over 1 Hours, - Administer iron dextran infusion bag over 1 hour - Monitor for infusion reactions with vitals at 30 minutes and 60 minutes after starting the infusion. - If patient develops sign/symptoms of reaction or vital signs outside normal limits: 1) STOP infusion 2) CONTACT physician Start Infusion 09/26/2023 12:41 PM EDT 975 mg 274.5 mL/hr Iron Dextran (Infed) IV Push TEST DOSE 25 mg IV Push, Administer over 0.5 Minutes, -Educate patient on signs/symptoms of infusion reaction -Administer 25 mg test dose of iron dextran before infusion bag -Observe patient for signs/symptoms of reaction with vital signs before test dose, then at 15 minutes after administering the test dose -If patient tolerates test dose with no reaction, proceed with iron dextran infusion -HOLD infusion and contact physician immediately if patient reacts to test dose, ONCE, 1 dose, On Maribel 09/26/23 at 1315 Given 09/26/2023 12:21 PM EDT 25 mg NSS infusion Intravenous, at 50 mL/hr, PRN, Starting on Maribel 09/26/23 at 1315, Until Maribel 09/26/23 at 1754, Maintenance line Start Infusion 09/26/2023 12:21 PM EDT 50 mL/hr documented in this encounter Care Teams Ambulance Dispatcher Relationship Specialty Start Date End Date Radha Hawthorne DO [address] [place] [address] PCP - General Family Medicine 02/18/18 documented as of this encounter
--- OUTSIDE RECORDS SUMMARY | 2023-11-08 14:00 | External Medical Summary | Summary of Care ---
Author Name Unknown Organization [facility] Address [address] [place] [address] Phone [phone] Care Team Providers Care Nursery Technician Name Role Phone John PaulRadha fox Manju DO Primary Care Provider [phone] Reason for Visit * Reason Comments IV Therapy Infed Infusion Encounter Details Date Type Department Care Team (Latest Contact Info) Description 09/26/2023 12:00 PM EDT Hem/Onc Treatment Hematology/Oncology Treatment, [address] [address] [place], Chair [address] [id number] Iron deficiency anemia, unspecified iron deficiency anemia type* Allergies No known active allergiesdocumented as of this encounter (statuses as of 10/10/2023) Medications Medication Sig Dispensed Refills Start Date [...] as of this encounter (statuses as of 10/10/2023) Active Problems Problem Noted Date Diagnosed Date [...] as of this encounter (statuses as of 10/10/2023) Resolved Problems Problem Noted Date Diagnosed Date [...] as of this encounter (statuses as of 10/10/2023) Immunizations Name Administration Dates Next Due DTaP [...] money to get more. Never true 04/23/2023 [place] Depression Scale Answer Date Recorded [place] Depression Scale Total 7 08/30/2023 The thought [...] No 04/23/2023 Does the household have a [facility] source [facility]? (Household - [...] [facility] [address] [place] [address] Lianne Shelby CRNP [address] [place] [address] 10/25/2023 9:30 AM EDT Pharmacy Pharmacy, [place] [address] [place], [place] [id number] Clinic, Anemia [address] [place] [address] Health Maintenance Due Date Last Done Comments [...] mL/hr documented in this encounter Care Teams Nursery Technician Relationship Specialty Start Date End Date Radha Hawthorne DO [address] [place] [address] PCP - General Family Medicine 02/18/18 documented as of this encounter
--- OUTSIDE RECORDS SUMMARY | 2023-11-08 14:00 | External Medical Summary ---
Author Name Unknown Address Unknown Organization K01:LABORATORY [place] [address] [place] [address] Laboratory Report Ordering Provider Test Date Status PRAMOD COBURN 10/28/2023 13:25:28 Final Observation Date Value Abnormality Reference (Units ) Status Streptococcus agalactiae DNA [Presence] in Specimen by LOLY with probe detection 10/28/2023 13:25:28 Negative Negative Final No Group B Streptococcus det ected by culture-enhanced PCR (amplified probe). GBS GBSCT - [facility] 10/28/2023 13:25:28 0.0 Final GBS SPCCT - [facility] 10/28/2023 13:25:28 31.4 Final Performing Location [facility]ORY [facility] [place] - [address] [place] [address]
--- OUTSIDE RECORDS SUMMARY | 2023-11-08 14:00 | External Medical Summary | Summary of Care ---
Author Name Unknown Organization [facility] Address [address] [place] [address] Phone [phone] Care Team Providers Care Psychological Examiner Name Role Phone John PaulRadha fox Manju DO Primary Care Provider [phone] Reason for Visit * Reason Comments NEW PATIENT Encounter Details Date Type Department Care Team (Late st Contact Info) Description 10/28/2023 12:30 PM EDT Office Visit Gynecology/Obstetric s [facility] [address] [place] [address] Kim Atkinson CRNP [address] [place] [address] Decreased movements in third trimester, single or [...] money to get more. Never true 04/23/2023 [place] Depression Scale Answer Date Recorded [place] Depression Scale Total 7 08/30/2023 The thought [...] No 04/23/2023 Does the household have a [facility] source of income? (Household - for ages [...] fluids. GBS today. Return in 1 week. Red Leader Documentation Provider requested calibration technician. Name of calibration technician: TERI Muller documented in this encounter Plan of Treatment Upcoming Encounters Date Type Department Care Team (Late st Contact Info) Description 10/28/2023 1:30 PM EDT [facility] [address] [facility] [address] [place] [phone] Remy [facility] [address] [address] Arrived 11/01/2023 9:30 AM EDT Pharmacy Pharmacy, [address] [place] [address] Clinic, [facility] [address] [place] [address] Pending Results Name Type Priority Associated Diagnoses [...] type documented in this encounter Care Teams Psychological Examiner Relationship Specialty Start Date End Date Radha Hawthorne DO [address] [place] [address] PCP - General Family Medicine 02/18/18 documented as of this encounter
--- OUTSIDE RECORDS SUMMARY | 2023-11-08 14:00 | External Medical Summary ---
Author Name Unknown Address Unknown Organization K01:LABORATORY [facility] - [address] [place] [address] Laboratory Report Ordering Provider Test Date Status JAYME FINLEY 10/28/2023 13:30:21 Final Observation Date Value Abnormality Reference (Units ) Status Ferritin 10/28/2023 13:30:21 368 Above high normal 13 -150 (ng/mL) Final Performing Location LAB[facility]ORY [facility] - [address] [place] [address]
--- OUTSIDE RECORDS SUMMARY | 2023-11-08 14:00 | External Medical Summary | Summary of Care ---
Author Name Unknown Organization [facility] Address [address] [place] [address] Phone [phone] Care Team Providers Care Parts Identifier Name Role Phone Radha Hawthorne Primary Care Provider [phone] Reason for Visit * Reason Onset Date Comments Status Check Anemia Follow-Up 10/07/2023 Encounter Details Date Type Department Care Team (Late st Contact Info) Description 10/07/2023 2:30 PM EDT Pharmacy Pharmacy, [place] [address] [place], [place] [id number] Clinic, [place] [address] [place] [address] Iron deficiency anemia, unspecified iron deficiency anemia type* Allergies No known active allergiesdocumented as of this encounter (statuses as of 10/07/2023) Medications Medication Sig Dispensed Refills Start Date [...] as of this encounter (statuses as of 10/07/2023) Active Problems Problem Noted Date Diagnosed Date [...] as of this encounter (statuses as of 10/07/2023) Resolved Problems Problem Noted Date Diagnosed Date [...] as of this encounter (statuses as of 10/07/2023) Immunizations Name Administration Dates Next Due HPV [...] money to get more. Never true 04/23/2023 [place] Depression Scale Answer Date Recorded [place] Depression Scale Total 7 08/30/2023 The thought [...] No 04/23/2023 Does the household have a [facility] source of income? (Household - for ages [...] as of this encounter Progress Notes * Sherrill Agudelo RPh - 10/07/2023 11:20 AM EDT CBCd, ferritin, iron screen, retic panel, B12, FA ordered for 10/24/23. Sherrill Agudelo PharmD, [facility] Clinical Pharmacist [facility] (P: [phone]) 10/07/2023 11:20 AM * Kylah Hummel, outsole flexer - 10/07/2023 8:53 AM EDT Patient Phone Numbers Call to patient to schedule labs. Left vm for patient. Patient received Infed on 09/25. Labs due on 10/23. GA: [id number] Estimated Date of Delivery: 11/23/23 Pharmacist - please place appropriate lab orders. Thank you, Kylah Hummel Network Operations Manager [facility] 10/07/2023,8:53 AM documented in this encounter Plan of Treatment Upcoming Encounters Date Type Department Care Team (Late st Contact Info) Description 10/16/2023 2:15 PM EDT [facility] [address] [facility] [address] [address] Lianne Shelby CRNP [address] [place] [address] 10/25/2023 9:30 AM EDT Pharmacy Pharmacy, [place] [address] [place] [address] Clinic, [place] [address] [place] [address] Scheduled Orders Name Type Priority Associated Diagnoses Orde r Schedule CBC WITH WBC DIFFERENTIAL Lab Routine Iron deficiency anemia, unspecified iron deficiency anemia type Expected: 10/24/2023, Expires: 09/05/2024 IRON SCREEN, INCLUDING TIBC Lab Routine Iron deficiency anemia, unspecified iron deficiency anemia type Expected: 10/24/2023, Expires: 09/05/2024 FERRITIN Lab Routine Iron deficiency anemia, unspecified iron deficiency anemia type Expected: 10/24/2023, Expires: 09/05/2024 RETICULOCYTE PANEL Lab Routine Iron deficiency anemia, unspecified iron deficiency anemia type Expected: 10/24/2023, Expires: 09/05/2024 VITAMIN B12 Lab Routine Iron deficiency anemia, unspecified iron deficiency anemia type Expected: 10/24/2023, Expires: 09/05/2024 FOLIC ACID Lab Routine Iron deficiency anemia, unspecified iron deficiency anemia type Expected: 10/24/2023, Expires: 09/05/2024 Health Maintenance Due Date Last Done Comments Pneumococcal Vaccine: Pediatrics (0 to 5 Years) and At-Risk Patients (6 to 64 Years) (1 of 2 - PCV) 1998 Depression Screening 10/16/2022 10/16/2021 COVID-19 Vaccine (1 - 2022- season) 2022 Influenza Vaccine (FLU [...] Primary documented in this encounter Care Teams Parts Identifier Relationship Specialty Start Date End Date Radha Hawthorne DO [address] [place] [address] PCP - General Family Medicine 02/18/18 documented as of this encounter
--- OUTSIDE RECORDS SUMMARY | 2023-11-08 14:01 | External Medical Summary | Summary of Care ---
Author Name Unknown Organization [facility] Address [address] [place] [address] Phone [phone] Care Team Providers Care Olive Brine Tester Name Role Phone SundarRadha buenrostro Manju DO Primary Care Provider [phone] Reason for Visit * Reason Comments IV Therapy Infed Infusion Encounter Details Date Type Department Care Team (Latest Contact Info) Description 09/26/2023 12:00 PM EDT Hem/Onc Treatment Hematology/Oncology Treatment, [address] [address] Gosia, Chair 7 Hem On[address] [address] Iron deficiency anemia, unspecified iron deficiency anemia type* Allergies No known active allergiesdocumented as of this encounter (statuses as of 09/26/2023) Medications Medication Sig Dispensed Refills Start Date [...] MG Oral Tablet Take by mouth. Active documented as of this encounter (statuses as of 09/26/2023) Active Problems Problem Noted Date Diagnosed Date Anxiety 07/11/2023 Supervision of normal first , antepartu m 04/23/2023 Obesity affecting 04/23/2023 Overview: Class 1 The patient's pre-gravid BMI is 31.74. Iron deficiency anemia 01/17/2023 KAVIN (generalized anxiety disorder) 01/17/2023 Screening for lipid disorders 01/17/2023 Intractable chronic migraine without aura and without status migrainosus 10/16/2021 Cervicalgia 10/16/2021 Morbid obesity due to excess calories 03/09/2021 Body mass index (BMI) of 40.0 to 44.9 in adult 0 11/14/2020 Overview: Per Obesity protocol Mild intermittent asthma without complication Gastroesophageal reflux disease without esophagi tis 03/21/2019 Other atopic dermatitis 11/26/2017 Migraine without aura 01/07/2004 Overview: Nortriptyline caused agitation Estimated Date of Delivery Comme nts Yes 11/23/2023 Based on last me nstrual period of 02/16/2023 (Approximate) documented as of this encounter (statuses as of 09/26/2023) Resolved Problems Problem Noted Date Diagnosed Date Resolved Date Chronic cholecystitis 07/06/20132018 Infectious mononucleosis 07/18/2011 OBESITY, [...] as of this encounter (statuses as of 09/26/2023) Immunizations Name Administration Dates Next Due HPV [...] money to get more. Never true 04/23/2023 [place] Depression Scale Answer Date Recorded [place] Depression Scale Total 7 08/30/2023 The thought [...] ages 0-17 years) Not on file 04/23/2023 Are you homeless or worried that [...] Care Team (Late st Contact Info) Description 10/02/2023 10:00 AM EDT Pharmacy Pharmacy, [address] [address] Clinic, [address] [address] 10/04/2023 8:30 AM EDT Office Visit Gynecology/Obstetrics [facility] [address] [facility] [address] [facility] [place] [address] Kallie Page CNM [address] [place] [address] [place] [address] 10/18/2023 9:20 AM EDT Telemedicine Nutrition & Weight Management, [facility] [address] [place] [place] [address] Ana Cristina Pruitt PA-C [address] [place] [address] Health Maintenance Due Date Last Done Comments [...] Primary documented in this encounter Administered Medications Active Administered Medications - up to 3 most recent administrations Medication Order MAR Action Action Date Dose Rate Site EPINEPHrine 1 MG/ML inj 0.3 mg 0.3 mg, Intramuscular, ONCE PRN Other, Hypersensitivity Reaction or Anaphylaxis, Starting on Maribel 09/26/23 at 1213, Until Sat09/27/23 at 1212, For 24 hours Famotidine (Pepcid) inj 20 mg 20 mg, IV Push, ONCE PRN Other, Hypersensitivity Reaction, Starting on Maribel 09/26/23 at 1213, Until 09/27/23 at 1212, For 24 hours, Give IV push over 2 minutes. hEParin 100 UNIT/ML Lock Flush inj 500 Units 500 Units (5 mL), IV Lock, PRN Other, IV Flush, Starting on Sat09/26/23 at 1213, Until Sat09/27/23 at 1212, For 24 hours, Do not flush if lock, PICC, or central line not in place; IV infusing or unable to flush. Hydrocortisone Sod Suc (PF) (Solu-Cortef) inj 100 mg 100 mg, IV Push, ONCE PRN Other, Hypersensitivity Reaction, Starting on Sat09/26/23 at 1213, Until Sat09/27/23 at 1212, For 24 hours NSS infusion Intravenous, at 50 mL/hr, PRN, Starting on Sat09/26/23 at 1315, Until Discontinued, Maintenance line Start Infusion 09/26/2023 12:21 PM EDT 50 mL/hr oxygen GAS Inhalation, OXYGEN, First dose on Sat09/26/23 at 1600, Until Discontinued, Device/Managed by: Low Flow Device, Goal SPO2 (%): 91-95, Starting Device: Nasal Cannula, Initial Flow Rate (LPM): 2, Lowest Support: Nasal Cannula: Flow 0-6 LPM. Titrate up/down by 1 LPM., Higher Support: Non-Rebreather (NRB) Mask: Minimum of 10 LPM. Titrate to maintain bag inflation., Titration Interval: Q2 minutes and as needed., Notify Provider: For sudden DECREASE in resting SPO2 to less than 85% and when escalating delivery device., Wean patient off Oxygen when the oxygen saturation is greater than or equal to 93% sodium chloride 0.9 % flush central line 10 mL 10 mL, IV Push, PRN Other, IV Flush, Starting on Sat09/26/23 at 1213, Until Sat09/27/23 at 1212, For 24 hours, Do not flush if lock, PICC, or central line not in place; IV infusing or unable to flush. Inactive Administered Medications - up to 3 most recent administrations Medication Order MAR Action Action Date Dose Rate Site Iron Dextran (Infed) 975 mg in NSS 250 mL INFUSION 975 mg, IV Piggyback, ONCE, 1 dose, On Sat09/26/23 at 1330, Administer over 1 Hours, - [...] Given 09/26/2023 12:21 PM EDT 25 mg documented in this encounter Care Teams Olive Brine Tester Relationship Specialty Start Date End Date Radha Hawthorne DO [address] [place] [place] [address] PCP - General Family Medicine 02/18/18 documented as of this encounter
--- OUTSIDE RECORDS SUMMARY | 2023-11-08 14:01 | External Medical Summary | Summary of Care ---
Author Name Unknown Organization [facility] Address [address] [place] [address] Phone [phone] Care Team Providers Care White Lead Grinder Name Role Phone Radha Hawthorne Primary Care Provider [phone] Reason for Referral * Evaluate & Treat - Unlimited Visits (Within 10 days (routine)) - Pending Review Specialty Diagnoses / Procedures Referred By Contac t Referred To Contact Pharmacist / Pharmacy Diagnoses ISABELA (iron deficiency anemia) Odalys Jaimes PA-C [address] [place] [id number] Referral ID Status Reason Start Date Expiration Date Visits Requested Visits Authorized [id number] Pending Review Specialty Services Required 09/09/2023 03/07/[phone] Question Answer Referral Priority Within 10 days (routine) Where should this appointment be scheduled? Luc Referring Provider Role: Specialist Specialty: non destructive testing engineer Reason for Referral: Anemia Comments Pharmacist Medication Therapy Management: Iron deficiency anemia. Vikas Stokes RN Reason for Visit * Reason Onset Date Comments Blood Management Program 09/09/2023 Encounter Details Date Type Department Care Team (Late st Contact Info) Description 09/09/2023 Telephone Patient Blood Management, [place] [address] [place] [address] Odalys Jaimes PA-C [address] [place] [phone] Blood Management Program Allergies No known active allergiesdocumented as of [...] 07/11/2023 Supervision of normal first , antepartu 04/23/2023 Obesity affecting 04/23/2023 Overview: Class 1 [...] Administration Dates Next Due HPV Vaccine, 4-Valent 01/21/2007,09/11/2006,05/0 11/2006 Meningococcal Conjugate Vacc ine (Menactra/Menveo) 05/13/2007 PPD 12/24/2018, 9,01/15/2017,07/24 TD, Preservative Free 06/06/2009 TDAP (age 10 and older)(Boostrix) 01/25/2021 Varicella Vaccine (Chicken Pox) 05/13/2007 documented as [...] money to get more. Never true 04/23/2023 [place] Depression Scale Answer Date Recorded [place] Depression Scale Total 7 08/30/2023 The thought [...] on file documented as of this encounter Miscellaneous Notes * Telephone Encounter - Vikas Stokes RN - 09/09/2023 1:26 PM EDT Recommend IV iron per OB MTM guidelines. Patient agreeable, prefers infusion at [facility]. documented in this encounter Plan of Treatment Upcoming Encounters Date Type Department Care Team (Late st Contact Info) Description 09/26/2023 12:00 PM EDT Hem/Onc Treatment Hematology/Oncology Treatment, [place] [address] [place] [address] Gosia, Chair 7 Hem Onc [facility] [address] [place] [address] 10/02/2023 10:00 AM EDT Pharmacy Pharmacy, [place] [address] [place] [address] Clinic, [facility] [address] [place] [address] 10/04/2023 8:30 AM EDT Office Visit Gynecology/Obstetrics [facility] [address] [facility] [place] [address] Kallie Page CNM [address] [place] [address] 10/18/2023 9:20 AM EDT Telemedicine Nutrition & Weight Management, [facility] [address] [facility] [place] [place] [address] Ana Cristina Pruitt PA-C [address] [facility] [place] [address] Scheduled Referrals Name Type Priority Associated Diagnoses Orde r Schedule PHARMACIST MEDS THERAPY MGMT REFERRAL OP Referral Within 10 days (routine) ISABELA (iron deficiency anemia) Ordered: 09/09/2023 Health Maintenance Due Date Last Done Comments [...] as of this encounter Visit Diagnoses Diagnosis ISABELA (iron deficiency anemia)- Primary Iron deficiency anemia, unspecified documented in this encounter Care Teams White Lead Grinder Relationship Specialty Start Date End Date Radha Hawthorne DO [address] [place] [address] PCP - General Family Medicine 02/18/18 documented as of this encounter
--- OUTSIDE RECORDS SUMMARY | 2023-11-08 14:01 | External Medical Summary | Summary of Care ---
Author Name Unknown Organization [facility] Address [address] [place] [address] Phone [phone] Care Team Providers Care Outsewer Name Role Phone Radha Hawthorne Primary Care Provider [phone] Reason for Visit * Reason Onset Date Comments Medication Pre-auth 09/19/2023 InFed Encounter Details Date Type Department Care Team (Late st Contact Info) Description 09/19/2023 Telephone Hematology/Oncology Treatment, [place] [address] [place] [address] Georgette Lacey MD 132 [place] [address] Medication Pre-auth (InFed) Allergies No known active allergiesdocumented as of this encounter (statuses as of 09/19/2023) Medications Medication Sig Dispensed Refills Start Date [...] as of this encounter (statuses as of 09/19/2023) Active Problems Problem Noted Date Diagnosed Date [...] as of this encounter (statuses as of 09/19/2023) Resolved Problems Problem Noted Date Diagnosed Date [...] as of this encounter (statuses as of 09/19/2023) Immunizations Name Administration Dates Next Due HPV [...] money to get more. Never true 04/23/2023 [place] Depression Scale Answer Date Recorded [place] Depression Scale Total 7 08/30/2023 The thought [...] encounter Miscellaneous Notes * Telephone Encounter - Kim Jaimes LPN - 09/19/2023 3:50 PM EDT Order received for InFed [place] plan built and routed to provider- p [id number] No prior auth required Awaiting provider signature before scheduling patient documented in this encounter Plan of Treatment Upcoming Encounters Date Type Department Care Team (Late st Contact Info) Description 10/02/2023 10:00 AM EDT Pharmacy Pharmacy, [place] [address] [place] [address] Clinic, [place] [address] [place] [address] 10/04/2023 8:30 AM EDT Office Visit Gynecology/Obstetrics [facility] [address] [place] [address] Kallie Page, [facility] [address] [facility] [place] [address] 10/18/2023 9:20 AM EDT Telemedicine Nutrition & Weight Management, [facility] [address] [place] [place] [address] Ana Cristina Pruitt PA-C [address] [place] [address] Health Maintenance Due Date Last Done Comments [...] filedocumented as of this encounter Care Teams Outsewer Relationship Specialty Start Date End Date Radha Hawthorne DO [address] [place] [address] PCP - General Family Medicine 02/18/18 documented as of this encounter
--- OUTSIDE RECORDS SUMMARY | 2023-11-08 14:01 | External Medical Summary | Summary of Care ---
Author Name Unknown Organization [facility] Address [address] [place] [address] Phone [phone] Care Team Providers Care School Library Media Program Director Name Role Phone Radha Hawthorne Primary Care Provider [phone] Reason for Visit * Reason Onset Date Comments Medication Pre-auth 09/19/2023 InFed Encounter Details Date Type Department Care Team (Late st Contact Info) Description 09/19/2023 Telephone Hematology/Oncology Treatment, [place] [address] [place] [address] Georgette Lacey MD 132 [facility] [place] [address] Medication Pre-auth (InFed) Allergies No known active allergiesdocumented as of this encounter (statuses as of 09/23/2023) Medications Medication Sig Dispensed Refills Start Date [...] as of this encounter (statuses as of 09/23/2023) Active Problems Problem Noted Date Diagnosed Date [...] as of this encounter (statuses as of 09/23/2023) Resolved Problems Problem Noted Date Diagnosed Date [...] as of this encounter (statuses as of 09/23/2023) Immunizations Name Administration Dates Next Due DTaP [...] money to get more. Never true 04/23/2023 [place] Depression Scale Answer Date Recorded [place] Depression Scale Total 7 08/30/2023 The thought [...] Telephone Encounter - Kim Jaimes LPN - 09/23/2023 7:27 AM EDT [place] plan signed. Scheduling: Please contact patient to schedule "InFed 03/04", (Abhijit), 3-hour infusion. Thank you!! InFed infusion x 1 Reminder: No more than 2 InFed infusions are to be scheduled per day, one infusion from 8am to 10 am, then the last one from 12pm to 2 pm. * Telephone Encounter - Kim Jaimes LPN - 09/19/2023 3:50 PM EDT Order received for InFed [place] plan built and routed to provider- p [id number] No prior auth required Awaiting provider signature before scheduling patient documented in this encounter Plan of Treatment Upcoming Encounters Date Type Department Care Team (Late st Contact Info) Description 10/02/2023 10:00 AM EDT Pharmacy Pharmacy, [address] [address] Clinic, [address] [address] 10/04/2023 8:30 AM EDT Office Visit Gynecology/Obstetrics [facility] [address] [place] [address] Kallie Page, [address] [address] 10/18/2023 9:20 AM EDT Telemedicine Nutrition & Weight Management, [facility] [address] [place] [address] Ana Cristina Pruitt PA-C [address] [place] [address] Health Maintenance Due Date Last Done Comments [...] filedocumented as of this encounter Care Teams School Library Media Program Director Relationship Specialty Start Date End Date Radha Hawthorne DO [address] [place] [address] PCP - General Family Medicine 02/18/18 documented as of this encounter
--- OUTSIDE RECORDS SUMMARY | 2023-11-08 14:01 | External Medical Summary | Summary of Care ---
Author Name Unknown Organization [facility] Address [address] [place] [address] Phone [phone] Care Team Providers Care Chairman & Chief Executive Officer Name Role Phone Sundarchitra Radha Manju DO Primary Care Provider [phone] Reason for Visit * Reason Comments IV Therapy Infed Infusion Encounter Details Date Type Department Care Team (Latest Contact Info) Description 09/26/2023 12:00 PM EDT Hem/Onc Treatment Hematology/Oncology Treatment, [address] [address] Gosia, Chair 7 Hem On[address] [id number] Iron deficiency anemia, unspecified iron deficiency anemia type* Allergies No known active allergiesdocumented as of this encounter (statuses as of 09/30/2023) Medications Medication Sig Dispensed Refills Start Date [...] as of this encounter (statuses as of 09/30/2023) Active Problems Problem Noted Date Diagnosed Date [...] as of this encounter (statuses as of 09/30/2023) Resolved Problems Problem Noted Date Diagnosed Date [...] as of this encounter (statuses as of 09/30/2023) Immunizations Name Administration Dates Next Due DTaP Dipth/Tet/Acell Pertussis (Infanrix), Peds 01/19/1997,03/12/1994,06/12/1993,04/17,02/13/1993 HPV Vaccine, 4-Valent 01/21/2007,09/11/2006,0511/2006 Haemophilius B (HIB), unspecified 1994,06/12/1993,04/17/1993,02/13 Hepatitis B [...] money to get more. Never true 04/23/2023 [place] Depression Scale Answer Date Recorded [place] Depression Scale Total 7 08/30/2023 The thought [...] Description 10/02/2023 10:00 AM EDT Pharmacy Pharmacy, [address] [address] Clinic, [place] [address] [place] [address] 10/04/2023 8:30 AM EDT Office Visit Gynecology/Obstetrics [facility] [address] [facility] [address] [address] Kallie Page, CN [address] [facility] [place] [address] Health Maintenance Due Date Last Done Comments [...] mL/hr documented in this encounter Care Teams Chairman & Chief Executive Officer Relationship Specialty Start Date End Date Radha Hawthorne DO [address] [place] [address] PCP - General Family Medicine 02/18/18 documented as of this encounter
--- OUTSIDE RECORDS SUMMARY | 2023-11-08 14:01 | External Medical Summary | Summary of Care ---
Author Name Unknown Organization [facility] Address [address] [place] [address] Phone [phone] Care Team Providers Care Janitorial Tech Name Role Phone Radha Hawthorne Primary Care Provider [phone] Reason for Visit * Reason Onset Date Comments Medication Pre-auth 09/19/2023 InFed Encounter Details Date Type Department Care Team (Late st Contact Info) Description 09/19/2023 Telephone Hematology/Oncology Treatment, [place] [address] [place] [address] Georgette Lacey MD 132 [facility] [address] Medication Pre-auth (InFed) Allergies No known active [...] money to get more. Never true 04/23/2023 [place] Depression Scale Answer Date Recorded [place] Depression Scale Total 7 08/30/2023 The thought [...] encounter Miscellaneous Notes * Telephone Encounter - Cassandra Ramon OSA - 09/23/2023 9:30 AM EDT Pt called back in and is scheduled and aware of date and time * Telephone Encounter - Cassandra Ramon OSA - 09/23/2023 9:23 AM EDT Left message * Telephone Encounter - Kim Jaimes LPN - 09/23/2023 7:27 AM EDT [place] plan signed. Scheduling: Please contact patient to [...] 3:50 PM EDT Order received for InFed [place] plan built and routed to provider- p [phone] No prior auth required Awaiting provider signature before scheduling patient documented in this encounter Plan of Treatment Upcoming Encounters Date Type Department Care Team (Late st Contact Info) Description 09/26/2023 12:00 PM EDT Hem/Onc Treatment Hematology/Oncology Treatment, [place] [address] [place] [address] Gosia, Chair 7 Hem Onc [facility] [address] [facility] [address] 10/02/2023 10:00 AM EDT Pharmacy Pharmacy, [place] [address] [place] [address] Clinic, [facility] [address] [place] [address] 10/04/2023 8:30 AM EDT Office Visit Gynecology/Obstetrics [facility] [address] [facility] [place] [address] Kallie Page, [facility] [address] [place] [address] 10/18/2023 9:20 AM EDT Telemedicine Nutrition & Weight Management, [facility] [address] [facility] [place] [address] Ana Cristina Pruitt PA-C [address] [place] [address] Health Maintenance Due Date Last Done Comments [...] filedocumented as of this encounter Care Teams Janitorial Tech Relationship Specialty Start Date End Date Radha Hawthorne DO [address] [place] [address] PCP - General Family Medicine 02/18/18 documented as of this encounter
--- OUTSIDE RECORDS SUMMARY | 2023-11-08 14:01 | External Medical Summary | Summary of Care ---
Author Name Unknown Organization [facility] Address [address] [place] [address] Phone [phone] Care Team Providers Care Health Care Recruiter Name Role Phone Radha Hawthorne DO Primary Care Provider [phone] Encounter Details Date Type Department Care Team (Late st Contact Info) Description 09/20/2023 Orders Only Pharmacy, [place] [address] [id number] [facility] [address] [place] [address] Allergies No known active allergiesdocumented as of this encounter (statuses as of 09/20/2023) Medications Medication Sig Dispensed Refills Start Date [...] as of this encounter (statuses as of 09/20/2023) Active Problems Problem Noted Date Diagnosed Date [...] as of this encounter (statuses as of 09/20/2023) Resolved Problems Problem Noted Date Diagnosed Date [...] as of this encounter (statuses as of 09/20/2023) Immunizations Name Administration Dates Next Due HPV Vaccine, 4-Valent 01/21/2007,09/11/2006,050 11/2006 Meningococcal Conjugate Vacc ine (Menactra/Menveo) 05/13/2007 [...] money to get more. Never true 04/23/2023 [place] Depression Scale Answer Date Recorded [place] Depression Scale Total 7 08/30/2023 The thought [...] Description 10/02/2023 10:00 AM EDT Pharmacy Pharmacy, [place] [address] [place] [address] Clinic, [place] [address] [place] [address] 10/04/2023 8:30 AM EDT Office Visit Gynecology/Obstetrics [facility] [address] [place] [address] Kallie Page, LOIS [address] [facility] [address] [place] [address] 10/18/2023 9:20 AM EDT Telemedicine Nutrition & Weight Management, [facility] [address] [place] [address] Ana Cristina Pruitt PA-C [address] [place] [address] Health Maintenance Due Date Last Done Comments Pneumococcal Vaccine: Pediatrics (0 to 5 Years) and At-Risk Patients (6 to 64 Years) (1 of 2 - PCV) 1998 Depression Screening 10/16/2022 10/16/2021 COVID-19 Vaccine (1 - 2022-24 season) 2022 Influenza Vaccine (FLU [...] filedocumented as of this encounter Care Teams Health Care Recruiter Relationship Specialty Start Date End Date Radha Hawthorne DO [address] [place] [address] PCP - General Family Medicine 02/18/18 documented as of this encounter
--- OUTSIDE RECORDS SUMMARY | 2023-11-08 14:01 | External Medical Summary | Summary of Care ---
Author Name Unknown Organization [facility] Address [address] [place] [address] Phone [phone] Care Team Providers Care Stove Mechanic Name Role Phone Radha Hawthorne Manju CHRISTIE Primary Care Provider [phone] Reason for Visit * Reason Comments Return Visit Encounter Details Date Type Department Care Team (Late st Contact Info) Description 10/04/2023 8:30 AM EDT Office Visit Gynecology/Obstetric s [facility] [address] [place] [address] Kallie Page CNM [address] [place] [address] Supervision of normal first , antepartum*; Antepartum anemia; Class 1 obesity Allergies No known active allergiesdocumented as of this encounter (statuses as of 10/04/2023) Medications Medication Sig Dispensed Refills Start Date End Date Status Albuterol Sulfate HFA 108 (90 Base) MCG/ACT Inhalation Aerosol SolutionIndications :Dyspnea Inhale 2 Puffs by mouth 4 times a day as needed for Shortness of Breath. 18 g 5 11/22/2020 Active Famotidine 40 MG Oral Tablet (Pepcid) Take 1 Tablet by mouth at bedtime. 90 Tablet 3 01/17/2023 Active Ferrous Sulfate 325 (65 Fe) MG Oral Tablet (FeroSul) Take 1 Tablet by mouth every other day. 45 Tablet 3 01/17/2023 10/04/2023 Active 28-0.8 MG Oral Tablet Take by mouth. Active Mag-200 200 MG Oral Tablet (Magnesium Oxide -Mg Supplement) Take by mouth. Active documented as of this encounter (statuses as of 10/04/2023) Active Problems Problem Noted Date Diagnosed Date [...] as of this encounter (statuses as of 10/04/2023) Resolved Problems Problem Noted Date Diagnosed Date [...] as of this encounter (statuses as of 10/04/2023) Immunizations Name Administration Dates Next Due HPV [...] money to get more. Never true 04/23/2023 [place] Depression Scale Answer Date Recorded [place] Depression Scale Total 7 08/30/2023 The thought [...] No 04/23/2023 Does the household have a [facility] source of income? (Household - for ages [...] Sign Reading Time Taken Comments Blood Pressure 116/72 10/04/2023 8:30 AM EDT Pulse - - Temperature - - Respiratory Rate - - Oxygen Saturation - - Inhaled Oxygen Concentration - - Weight 102.1 kg (225 lb) 10/04/2023 8:30 AM EDT Height - - Body Mass Index 38.62 08/30/2023 10:59 AM EDT documented in this encounter Progress Notes * Kallie Page CNM - 10/04/2023 8:44 AM EDT Argenis Starr is a 32 year old female here for her routine OB appointment at 32w6d Her Estimated Date of Delivery: 11/23/23 REVIEW OF SYSTEMS: She affirms movement. Denies vaginal bleeding, LOF, contractions, headaches, and RUQ pain. Seeing "stars" occasionally which is transient and only lasts a few seconds. Complains of pain in her upper abdomen for about 1 week. Not a tightening. Feels sharp. Thinks it is due to stretching andbaby's size. +Nausea. No vomiting. PHYSICAL EXAM: Filed Vitals: 10/04/23 0830 BP: 116/72 Weight: 102.1 kg (225 lb) +FHT 130-140bpm Fundal height: 32cm ASSESSMENT/PLAN: (O99.019) Antepartum anemia Plan: -Patient is s/p iron infusions (E66.9) Class 1 obesity (Z34.00) Supervision of normal first , antepartum (primary encounter diagnosis) Plan: -Recommended childbirth education courses through "[facility]" as patient is planning delivery at [facility] -Reviewed warning signs of pre-eclampsia -Encouraged hydration - labor precautions and kick counts reviewed - RTO in 2 weeks Kallie Page CNM * Terri Sol LPN - 10/04/2023 8:30 AM EDT 32w6d Denies vaginal bleeding/rom + movement Had iron infusion 09/26/23- repeat labs 4-6 weeks after per blood management documented in this encounter Plan of Treatment Upcoming Encounters Date Type Department Care Team (Late st Contact Info) Description 10/07/2023 2:30 PM EDT Pharmacy Pharmacy, [place] [address] [place] [address] Clinic, [place] [address] [place] [address] 10/16/2023 2:15 PM EDT Office Visit Gynecology/Obstetrics [facility] [address] [place] [address] Lianne Shelby CRNP [address] [place] [address] Health Maintenance Due Date Last Done Comments [...] Supervision of normal first , antepartum- Primary Antepartum anemia Anemia, antepartum Class 1 obesity documented in this encounter Care Teams Stove Mechanic Relationship Specialty Start Date End Date Radha Hawthorne DO [address] [place] [address] PCP - General Family Medicine 02/18/18 documented as of this encounter
--- OUTSIDE RECORDS SUMMARY | 2023-11-08 14:01 | External Medical Summary | Summary of Care ---
Author Name Unknown Organization [facility] Address [address] [place] [address] Phone [phone] Care Team Providers Care Combine Driver Name Role Phone Radha Hawthorne Primary Care Provider [phone] Reason for Visit * Reason Onset Date Comments Medication Pre-auth 09/19/2023 InFed Encounter Details Date Type Department Care Team (Late st Contact Info) Description 09/19/2023 Telephone Hematology/Oncology Treatment, [place] [address] [place] [address] Georgette Lacey MD [address] [facility] [place] [address] Medication Pre-auth (InFed) Allergies No known active [...] money to get more. Never true 04/23/2023 [place] Depression Scale Answer Date Recorded [place] Depression Scale Total 7 08/30/2023 The thought [...] Jaimes LPN - 09/23/2023 7:27 AM EDT [place] plan signed. Scheduling: Please contact patient to [...] 3:50 PM EDT Order received for InFed [place] plan built and routed to provider- p [phone] No prior auth required Awaiting provider signature before scheduling patient documented in this encounter Plan of Treatment Upcoming Encounters Date Type Department Care Team (Late st Contact Info) Description 10/02/2023 10:00 AM EDT Pharmacy Pharmacy, [place] [address] [place] [address] Clinic, [place] [address] [place] [address] 10/04/2023 8:30 AM EDT Office Visit Gynecology/Obstetrics [facility] [address] [place] [address] Kallie Page CNM [address] [place] [address] [place] [address] 10/18/2023 9:20 AM EDT Telemedicine Nutrition & Weight Management, [facility] [address] [place] [address] Ana Cristina Pruitt PA-C [address] [place] [address] Health Maintenance Due Date Last Done Comments [...] filedocumented as of this encounter Care Teams Combine Driver Relationship Specialty Start Date End Date Radha Hawthorne DO [address] [place] [address] PCP - General Family Medicine 02/18/18 documented as of this encounter
--- OUTSIDE RECORDS SUMMARY | 2023-11-08 14:02 | External Medical Summary | Summary of Care ---
Author Name Unknown Organization [facility] Address [address] [place] [address] Phone [phone] Care Team Providers Care Director Of Capital Giving Name Role Phone Radha Hawthorne DO Primary Care Provider [phone] Reason for Visit * Reason Comments Blood Management Program Encounter Details Date Type Department Care Team (Late st Contact Info) Description 09/09/2023 Documentation Patient Blood Management, [place] [address] [place] [address] Vikas Stokes, RN Allergies No known active allergiesdocumented as of this encounter (statuses as of 09/09/2023) Medications Medication Sig Dispensed Refills Start Date [...] as of this encounter (statuses as of 09/09/2023) Active Problems Problem Noted Date Diagnosed Date [...] as of this encounter (statuses as of 09/09/2023) Resolved Problems Problem Noted Date Diagnosed Date [...] as of this encounter (statuses as of 09/09/2023) Immunizations Name Administration Dates Next Due HPV [...] money to get more. Never true 04/23/2023 [place] Depression Scale Answer Date Recorded [place] Depression Scale Total 7 08/30/2023 The thought [...] as of this encounter Progress Notes * Vikas Stokes RN - 09/09/2023 1:17 PM EDT REFERRAL - Patient Blood Management Name: Argenis Starr REQUESTING SERVICE: Cecilia HOLDEN REASON FOR REFERRAL: new evaluation outpatient, anemia in [facility]: 11/23/23 Anemia Evaluation: Latest Reference Range & Units 09/04/23 11:20 HGB 12.0 - 15.3 g/dL 10.5 (L) HCT 36.0 - 45.2 % 32.9 (L) Iron 33 - 151 ug/dL 105 Iron Binding Capacity 250 - 425 ug/dL 422 Transferrin Saturation Percent 15 - 55 % 25 Ferritin 13 - 150 ng/mL 32 Vitamin B12 232 - 1,245 pg/mL 314 Folic Acid >4.5 ng/mL >20.0 Immature Reticuloctye Fraction 2.5 - 20.6 % 19.9 Reticulocyte Hemoglobin 29.7 - 37.4 pg 31.9 (L): Data is abnormally low Current Patient Medications: Medications that may impair hemostasis: none Medications that may impair iron absorption: none Patient Refused Blood Transfusion? (e.g. Mandaeism): no Possible Contributing Factors: iron deficiency Treatment Recommendations: IV iron per OB MTM guidelines. 09/08 - Spoke with Argenis, she is agreeable to IV iron at [facility]. Thank you for allowing Blood Management to participate in the care of this patient. documented in this encounter Plan of Treatment Upcoming Encounters Date Type Department Care Team (Late st Contact Info) Description 09/19/2023 1:30 PM EDT Office Visit Gynecology/Obstetrics [facility] [address] [place] [address] Odalys Jaimes PA-C [address] [place] [address] 10/18/2023 9:20 AM EDT Telemedicine Nutrition & Weight Management, [facility] [address] [place] [address] Ana Cristina Pruitt PA-C [address] [place] [address] Health Maintenance Due Date Last Done Comments Pneumococcal Vaccine: Pediatrics (0 to 5 Years) and At-Risk Patients (6 to 64 Years) (1 of 2 - PCV) 1998 Depression Screening 10/16/2022 10/16/2021 COVID-19 Vaccine ( season) 2022 Influenza Vaccine (FLU shot) (#1) 2023 Pap Smear 04/23/2026 04/23/2023, 08/02, 05/25/2016, Additional history exists Cervical Cancer Screening 04/23/2028 HPV/Co-Test 04/23/2028 04/23/2023 DTaP,Tdap,and Td Vaccines (9 - Td or Tdap) 01/25/2031 01/25/2021, 06/06/2009, 02/09/2005, Additional history exists Hepatitis B Vaccine Completed 10/01/1994, 06/20/1993, 06/20/1993, Additional history exists HPV (Gardasil) Vaccine Completed 7, 09/11/2006, 07/10/2006 MENINGOCOCCAL (MENACTRA/MENVEO) Aged Out 05/13/2007 No longer eligible based on patient's age to complete this topic documented as of this encounter Medical Devices Not on filedocumented as of this encounter Care Teams Director Of Capital Giving Relationship Specialty Start Date End Date Radha Hawthorne DO [address] [place] [address] PCP - General Family Medicine 02/18/18 documented as of this encounter
--- OUTSIDE RECORDS SUMMARY | 2023-11-08 14:02 | External Medical Summary ---
Author Name Unknown Address Unknown Organization [id number]:LABORATORY [facility] - [facility] [place] [address] Laboratory Report Ordering Provider Test Date Status GLO SWANSON 09/04/2023 11:20:45 Final Observation Date Value Abnormality Reference (Units ) Status Retic, % (auto) 09/04/2023 11:20:45 2.34 Above high normal 0.80-1.90 (%) Final Reticulocytes, Absolute 09/04/2023 11:20:45 82.8 31.3-100.1 (K/uL) Final Reticulocyte fraction, immature 09/04/2023 11:20:45 19.9 2.5-20.6 (%) Final Reticulocyte HGB 09/04/2023 11:20:45 31.9 29.7-37.4 (pg) Final Performing Location LABORATORY [facility] - [address] [place] [address]
--- OUTSIDE RECORDS SUMMARY | 2023-11-08 14:02 | External Medical Summary | Summary of Care ---
Author Name Unknown Organization [facility] Address [address] [facility] [place] [address] Phone [phone] Care Team Providers Care Retail Commission Sales Associate Name Role Phone Radha Hawthorne DO Primary Care Provider [phone] Encounter Details Date Type Department Care Team (Late st Contact Info) Description 09/06/2023 Telephone Gynecology/Obstetrics [facility] [address] [place] [address] Odalys Jaimes PA-C [address] [place] [address] Allergies No known active allergiesdocumented as of this encounter (statuses as of 09/06/2023) Medications Medication Sig Dispensed Refills Start Date [...] as of this encounter (statuses as of 09/06/2023) Active Problems Problem Noted Date Diagnosed Date [...] as of this encounter (statuses as of 09/06/2023) Resolved Problems Problem Noted Date Diagnosed Date [...] as of this encounter (statuses as of 09/06/2023) Immunizations Name Administration Dates Next Due DTaP Dipth/Tet/Acell Pertussis (Infanrix), Peds 01/19/1997,03/12/1994,06/12/1993,04/17,02/13/1993 HPV Vaccine, 4-Valent 01/21/2007,09/11/2006,0511/2006 Haemophilius B (HIB), unspecified 1994,06/12/1993,04/17/1993,02/13 Hepatitis B Vaccine 10/01/1994,06/20/1993,1992 MMR - Measles/Mumps/Rubella Vaccine 01/19/1997,0 03/12/1994 Meningococcal Conjugate Vacc ine (Menactra/Menveo) 05/13/2007 OPV - Polio Virus Vaccine (Oral) 997,03/12/1994,04/17/1993,02/13 PPD 12/24/2018, 9,01/15/2017,07/24 TD, Preservative Free 06/06/2009 TDAP (age 10 and older)(Boostrix) 01/25/2021,11/2004 Varicella Vaccine (Chicken Pox) 05/13/2007,10/01 documented as [...] money to get more. Never true 04/23/2023 [place] Depression Scale Answer Date Recorded [place] Depression Scale Total 7 08/30/2023 The thought [...] No 04/23/2023 Does the household have a [facility] source of income? (Household - for [...] as of this encounter Miscellaneous Notes * Addendum Note - Odalys Jaimes PA-C - 09/06/2023 12:28 PM EDTAddended by: ODALYS JAIMES on: 09/06/2023 12:28 PM Modules accepted: Orders * Telephone Encounter - Karen Newman RN - 09/06/2023 9:27 AM EDT Patient called and made aware. She is agreeable to IV iron infusions. Please place referral. Made patient aware blood management would reach out to her to set up infusions. * Telephone Encounter - Odalys Jaimes PA-C - 09/06/2023 9:02 AM EDT Received remainder of labs back indicating anemia. Her hemoglobin was 10.5. Would recommend IV iron. If agreeable can place referral for her to schedule ahead of delivery. Odalys Jaimes PA-C documented in this encounter Plan of Treatment Upcoming Encounters Date Type Department Care Team (Late st Contact Info) Description 09/19/2023 1:30 PM EDT Office Visit Gynecology/Obstetrics [facility] [address] [place] [address] Odalys Jaimes PA-C [address] [place] [address] 10/18/2023 9:20 AM EDT Telemedicine Nutrition & Weight Management, [facility] [address] [place] [address] Ana Cristina Pruitt PA-C [address] [place] [address] Health Maintenance Due Date Last Done Comments [...] as of this encounter Visit Diagnoses Diagnosis Antepartum anemia complicating - Primary Anemia, antepartum documented in this encounter Care Teams Retail Commission Sales Associate Relationship Specialty Start Date End Date Radha Hawthorne DO [address] [place] [address] PCP - General Family Medicine 02/18/18 documented as of this encounter
--- OUTSIDE RECORDS SUMMARY | 2023-11-08 14:02 | External Medical Summary ---
Author Name Unknown Address Unknown Organization K01:LABORATORY [facility] - [address] [place] [address] Laboratory Report Ordering Provider Test Date Status GLO SWANSON 09/04/2023 11:20:45 Final Observation Date Value Abnormality Reference (Units ) Status Iron 09/04/2023 11:20:45 105 33-151 (ug /dL) Final Iron-binding capacity 09/04/2023 11:20:45 422 250-425 (ug/dL) Final Transferrin Sat % 09/04/2023 11:20:45 25 15 -55 (%) Final Performing Location [facility] [address] [facility] [address]
--- OUTSIDE RECORDS SUMMARY | 2023-11-08 14:02 | External Medical Summary ---
Author Name Unknown Address Unknown Organization K01:LABORATORY [facility] - [address] [facility] [address] Laboratory Report Ordering Provider Test Date Status GLO SWANSON 09/04/2023 11:20:45 Final Observation Date Value Abnormality Reference (Units ) Status TSH 09/04/2023 11:20:45 1.39 0.27-4.20 (uIU/mL) Final Performing Location LAB[facility]ORY [facility] - [address] [facility] [address]
--- OUTSIDE RECORDS SUMMARY | 2023-11-08 14:02 | External Medical Summary | Summary of Care ---
Author Name Unknown Organization [facility] Address [address] [place] [address] Phone [phone] Care Team Providers Care Car Chaser Name Role Phone John PaulRadha fox Manju CHRISTIE Primary Care Provider [phone] Reason for Visit * Reason Comments Outpatient Testing Encounter Details Date Type Department Care Team (Late st Contact Info) Description 09/04/2023 10:20 AM EDT Laboratory Laboratory, [facility] [address] [place] [address] [facility] [address] [place] [address] Supervision of normal first , antepartum Allergies No known active allergiesdocumented as of this encounter (statuses as of 09/04/2023) Medications Medication Sig Dispensed Refills Start Date [...] as of this encounter (statuses as of 09/04/2023) Active Problems Problem Noted Date Diagnosed Date [...] as of this encounter (statuses as of 09/04/2023) Resolved Problems Problem Noted Date Diagnosed Date [...] as of this encounter (statuses as of 09/04/2023) Immunizations Name Administration Dates Next Due HPV [...] money to get more. Never true 04/23/2023 [place] Depression Scale Answer Date Recorded [place] Depression Scale Total 7 08/30/2023 The thought [...] 09/19/2023 1:30 PM EDT Office Visit Gynecology/Obstetrics [facility] [address] [address] Odalys Jaimes PA-C [address] [place] [address] 10/18/2023 9:20 AM EDT Telemedicine Nutrition & Weight Management, [facility] [address] [place] [address] Ana Cristina Pruitt PA-C [address] [place] [address] Pending Results Name Type Priority Associated Diagnoses Date /Time 50-G GESTATIONAL GLUCOSE, 1 HOUR Lab Routine Supervision of normal first , antepartum 09/04/2023 11:20 AM EDT SYPHILIS ANTIBODY SCREEN WITH REFLEX TO RPR Lab Routine Supervision of normal first , antepartum 09/04/2023 11:20 AM EDT CBC WITH WBC DIFFERENTIAL AND ANEMIA REFLEX WORKUP Lab Routine Supervision of normal first , antepartum 09/04/2023 11:20 AM EDT SYPHILIS ANTIBODY SCREEN Lab Routine Supervision of normal first , antepartum 09/04/2023 11:20 AM EDT ANEMIA CBC Lab Routine Supervision of normal first , antepartum 09/04/2023 11:20 AM EDT DIFFERENTIAL, AUTOMATED Lab Routine Supervision of normal first , antepartum 09/04/2023 11:20 AM EDT ANEMIA REFLEX CHEMISTRY HOLD Lab Routine Supervision of normal first , antepartum 09/04/2023 11:20 AM EDT Health Maintenance Due Date Last Done [...] Diagnoses Diagnosis Supervision of normal first , antepartum documented in this encounter Care Teams Car Chaser Relationship Specialty Start Date End Date Radha Hawthorne DO [address] [place] [address] PCP - General Family Medicine 02/18/18 documented as of this encounter
--- OUTSIDE RECORDS SUMMARY | 2023-11-08 14:02 | External Medical Summary | Summary of Care ---
Author Name Unknown Organization [facility] Address [address] [place] [address] Phone [phone] Care Team Providers Care Crisis Intervention Specialist Name Role Phone Radha Hawthorne Manju CHRISTIE Primary Care Provider [phone] Reason for Visit * Reason Comments Return Visit Encounter Details Date Type Department Care Team (Late st Contact Info) Description 09/04/2023 11:15 AM EDT Office Visit Gynecology/Obstetric s [facility] [address] [place] [address] Kim Atkinson CRNP [address] [place] [address] Supervision of normal first , antepartum*; Obesity affecting in third trimester, unspecified obesity type Allergies No known active allergiesdocumented as of this encounter (statuses as of 09/04/2023) Medications Medication Sig Dispensed Refills Start Date End Date Status Albuterol Sulfate HFA 108 (90 Base) MCG/ACT Inhalation Aerosol SolutionIndicatio ns:Dyspnea Inhale 2 Puffs by mouth 4 times a day as needed for Shortness of Breath. 18 g 5 11/22/2020 Active Famotidine 40 MG Oral Tablet (Pepcid) Take 1 Tablet by mouth at bedtime. 90 Tablet 3 01/17/2023 Active 28-0.8 MG Oral Tablet Take by mouth. Active Triamcinolone Acetonide 0.1 % External Cream (Aristocort)Indic ations:Eczema, unspecified type Apply to dry patches on the body twice daily as needed for flares. 60 g 2 03/26/2022 09/04/2023 Discontinued (Medication List Clean Up) Promethazine HCl 25 MG Oral Tablet (Phenergan) Take 1 Tablet by mouth every 6 hours as needed for Nausea. 30 Tablet 1 04/16/2023 09/04/2023 Discontinued (Medication List Clean Up) documented as of this encounter (statuses as [...] money to get more. Never true 04/23/2023 [place] Depression Scale Answer Date Recorded Prim Depression Scale Total 7 08/30/2023 The thought [...] 04/23/2023 Does the household have a re lar source of income? (Household - for ages [...] Sign Reading Time Taken Comments Blood Pressure 108/68 09/04/2023 10:43 AM EDT Pulse - - Temperature - - Respiratory Rate - - Oxygen Saturation - - Inhaled Oxygen Concentration - - Weight 99.7 kg (219 lb 12.8 oz) 024 10:43 AM EDT Height - - Body Mass Index 37.73 08/30/2023 10:59 AM EDT documented in this encounter Progress Notes * Kim Atkinson CRNP - 09/04/2023 10:31 AM EDT 28w4d U/S today, per tech THERESA is normal. Completing glucose testing. Defers Tdap to next visit. Still some cramping. No bleeding. Cervical length normal on 08/28. Advised to push fluids and call if not improving. Baby is active. Reviewed [facility] and when to call with concerns. Recommend looking at [facility]/ classes, pediatricians. 2 week return TERI Gutierrez documented in this encounter Nursing Notes * Terri Sol LPN - 09/04/2023 10:44 AM EDT 28w4d Denies vaginal bleeding/rom + movement Tdap next visit documented in this encounter Plan of Treatment Upcoming Encounters Date Type Department Care Team (Late st Contact Info) Description 09/19/2023 1:30 PM EDT Office Visit Gynecology/Obstetrics [facility] [address] [address] Odalys Jaimes PA-C [address] [address] 10/18/2023 9:20 AM EDT Telemedicine Nutrition & Weight Management, [facility] [address] [address] Ana Cristina Pruitt PA-C [address] [address] Health Maintenance Due Date Last Done Comments [...] Supervision of normal first , antepartum- Primary Obesity affecting in third trimester, unspecified obesity type documented in this encounter Care Teams Crisis Intervention Specialist Relationship Specialty Start Date End Date Radha Hawthorne DO [address] [facility] [place] [address] PCP - General Family Medicine 02/18/18 documented as of this encounter
--- OUTSIDE RECORDS SUMMARY | 2023-11-08 14:02 | External Medical Summary | Summary of Care ---
Author Name Unknown Organization [facility] Address [address] [facility] [address] Phone [phone] Care Team Providers Care Manager Program Management Name Role Phone Radha Hawthorne DO Primary Care Provider [phone] Encounter Details Date Type Department Care Team (Late st Contact Info) Description 09/06/2023 Telephone Gynecology/Obstetrics [facility] [address] [place] [address] Odalys Jaimes PA-C [address] [place] [address] Allergies No known active allergiesdocumented as of [...] 09/06/2023) Immunizations Name Administration Dates Next Due HPV [...] money to get more. Never true 04/23/2023 [place] Depression Scale Answer Date Recorded [place] Depression Scale Total 7 08/30/2023 The thought [...] 18 years and over) Not on file 4 Are you (or your family) hilda eless [...] encounter Miscellaneous Notes * Telephone Encounter - Karen Newman RN [...] 09/19/2023 1:30 PM EDT Office Visit Gynecology/Obstetrics [facility] [address] [address] Odalys Jaimes PA-C [address] [address] 10/18/2023 9:20 AM EDT Telemedicine Nutrition & Weight Management, [facility] [address] [address] Ana Cristina Pruitt PA-C [address] [place] [address] Health Maintenance Due Date Last Done Comments [...] filedocumented as of this encounter Care Teams Manager Program Management Relationship Specialty Start Date End Date Radha Hawthorne DO [address] [address] PCP - General Family Medicine 02/18/18 documented as of this encounter
--- OUTSIDE RECORDS SUMMARY | 2023-11-08 14:02 | External Medical Summary | Summary of Care ---
Author Name Unknown Organization [facility] Address [address] [place] [address] Phone [phone] Care Team Providers Care Re Etcher Name Role Phone Radha Hawthorne Manju CHRISTIE Primary Care Provider [phone] Reason for Visit * Reason Comments Return Visit Encounter Details Date Type Department Care Team (Late st Contact Info) Description 09/19/2023 1:30 PM EDT Office Visit Gynecology/Obstetric s [facility] [address] [place] [place] [address] Odalys Jaimes PA-C [address] [place] [address] Supervision of normal first , antepartum*; Obesity affecting , antepartum, unspecified obesity type; Need for xkbjqhpkhu-liougnr-yv rtussis (Tdap) vaccine Allergies No known active allergiesdocumented as of [...] money to get more. Never true 04/23/2023 [place] Depression Scale Answer Date Recorded [place] Depression Scale Total 7 08/30/2023 The thought [...] Sign Reading Time Taken Comments Blood Pressure 104/60 09/19/2023 1:25 PM EDT Pulse - - Temperature - - Respiratory Rate - - Oxygen Saturation - - Inhaled Oxygen Concentration - - Weight 106.1 kg (234 lb) 09/19/2023 1:25 PM EDT Height - - Body Mass Index 40.17 08/30/2023 10:59 AM EDT documented in this encounter Progress Notes * Odalys Jaimes PA-C - 09/19/2023 1:37 PM EDT 30w5d No complaints. Denies VB, LOF, contractions. Baby is active. Accepts TDaP, given. RTC in 2 weeks Odalys Jaimes PA-C * Yulissa Donato MED ASSIST - 09/19/2023 1:25 PM EDT 30w5d Denies vaginal bleeding/rom + movements Occasional mild headaches, go away on their own No concerns Agreeable to TDAP today documented in this encounter Nursing Notes * Terri Sol LPN - 09/19/2023 1:51 PM EDT Patient here for tdap injection. Patient doing well no complaints. Injection given IM as ordered. Patient tolerated well.Patient to follow up as directed. Patient instructed to call if any complications. Patient verbalized understanding of instructions given. Injection site: Left Deltoid Medication Source: Dispensed stock medication documented in this encounter Plan of Treatment Upcoming Encounters Date Type Department Care Team (Late st Contact Info) Description 09/19/2023 4:00 PM EDT Pharmacy Pharmacy, [place] [address] [place] [address] Clinic, Anemia [address] [place] [address] Iron deficiency anemia, unspecified iron deficiency anemia type* 10/02/2023 10:00 AM EDT Pharmacy Pharmacy, [place] [address] [place] [address] Clinic, Anemia [address] [place] [address] 10/04/2023 8:30 AM EDT Office Visit [facility] [address] [facility] [place] [place] [address] Kallie Page CNM [address] [facility] [address] [place] [address] 10/18/2023 9:20 AM EDT Telemedicine Nutrition & Weight Management, [facility] [address] [place] [address] Ana Cristina Pruitt PA-C [address] [place] [address] Health Maintenance Due Date Last Done Comments [...] normal first , antepartum- Primary Obesity affecting , antepartum, unspecified obesity type Need for swjzlkvhys-swctrzw-tyrjwmzwb (Tdap) vaccine Need for prophylactic vaccination with combined cjvttapcpt-qprundq-uyprpvnjm (DTP) vaccine Iron deficiency anemia, unspecified iron deficiency anemia type- Primary documented in this encounter Care Teams Re Etcher Relationship Specialty Start Date End Date Radha Hawthorne DO [address] [address] PCP - General Family Medicine 02/18/18 documented as of this encounter
--- OUTSIDE RECORDS SUMMARY | 2023-11-08 14:02 | External Medical Summary | Summary of Care ---
Author Name Unknown Organization [facility] Address [address] [place] [facility] [place] [address] Phone [phone] Care Team Providers Care Customer Order Clerk Name Role Phone John PaulRadha fox Manju CHRISTIE Primary Care Provider [phone] Reason for Referral * (Within 10 days (routine)) Specialty Diagnoses / Procedures Referred By Valentino t Referred To Contact Hyperbaric Medicine Odalys Jaimes PA-C [address] [place] [address] Referral ID Status Reason Start Date Expiration Date Visits Re quested Visits Authorized Question Answer Referral Priority Within 10 days (routine) Where should this appointment be scheduled? [facility] Comments Referral for IV iron, pt . Encounter Details Date Type Department Care Team (Late st Contact Info) Description 09/06/2023 Telephone Gynecology/Obstetrics [facility] [address] [place] [address] Odalys Jaimes PA-C [address] [place] [place] [address] Allergies No known active allergiesdocumented as of [...] 09/09/2023) Immunizations Name Administration Dates Next Due DTaP [...] money to get more. Never true 04/23/2023 [place] Depression Scale Answer Date Recorded [place] Depression Scale Total 7 08/30/2023 The thought [...] Addendum Note - Odalys Jaimes PA-C - 09/09/2023 12:58 PM EDTAddended by: ODALYS JAIMES on: 09/09/2023 12:58 PM Modules accepted: Orders * Telephone Encounter - Odalys Jaimes PA-C - 09/09/2023 12:57 PM EDT Referral placed. Routing as FYI given changes in referral process. Thank you, Odalys Jaimes PA-C * Addendum Note - Odalys Jaimes PA-C [...] 1:30 PM EDT Office Visit Gynecology/Obstetrics [facility] [address] [place] [address] Odalys Jaimes PA-C [address] [place] [place] [address] 10/18/2023 9:20 AM EDT Telemedicine Nutrition & Weight Management, [facility] [address] [place] [address] Ana Cristina Pruitt PA-C [address] [place] [place] [address] Scheduled Referrals Name Type Priority Associated Diagnoses Orde r Schedule BLOOD MANAGEMENT REFERRAL Referral Within 10 days (routine) Antepartum anemia complicating Ordered: 09/09/2023 Health Maintenance Due Date Last [...] antepartum documented in this encounter Care Teams Customer Order Clerk Relationship Specialty Start Date End Date Radha Hawthorne DO [address] [place] [address] PCP - General Family Medicine 02/18/18 documented as of this encounter
--- OUTSIDE RECORDS SUMMARY | 2023-11-08 14:02 | External Medical Summary | Summary of Care ---
Author Name Unknown Organization [facility] Address [address] [place] [address] Phone [phone] Care Team Providers Care Business System Manager Name Role Phone Radha Hawthorne Manju CHRISTIE Primary Care Provider [phone] Reason for Visit * Reason Onset Date Comments Anemia Follow-Up 09/19/2023 * Evaluate & Treat - Unlimited Visits (Within 10 days (routine)) - Pending Review Specialty Diagnoses / Procedures Referred By Contac t Referred To Contact Pharmacist / Pharmacy Diagnoses ISABELA (iron deficiency anemia) Odalys Jaimes PA-C [address] [place] [address] Referral ID Status Reason Start Date Expiration Date Visits Requested Visits Authorized [id number] Pending Review Specialty Services Required 09/09/2023 03/07/2024 99 [phone] Encounter Details Date Type Department Care Team (Late st Contact Info) Description 09/19/2023 4:00 PM EDT Pharmacy Pharmacy, [place] [address] [place], [place] [id number] Clinic, Anemia [address] [place], [place] [id number] Iron deficiency anemia, unspecified iron deficiency anemia [...] money to get more. Never true 04/23/2023 [employer] Depression Scale Answer Date Recorded [employer] Depression Scale Total 7 08/30/2023 The thought [...] as of this encounter Progress Notes * Lupe [place], [facility] - 09/19/2023 2:27 PM EDT Patient Phone Numbers Patient referred by Odalys Jaimes PA-C for evaluation of anemia by the Anemia Clinic. Called patient to introduce role/clinic and to review labs from 09/03. Hgb: 10.5 g/dL TSAT: 25 % Ferritin: 32 ng/mL B12: 314 pg/mL FA: >20.0 ng/mL GA: 30w5d Estimated Date of Delivery: 11/23/23 Hgb is below target range for the third trimester. Iron studies below target range. B12 level within target range. FA level within target range. Patient reports feeling extra tired and short of breath and otherwise denies signs/symptoms of anemia. Oral iron replenishment inadequate or contraindicated. Patient qualifies for IV iron repletion. Plan: Iron dextran (INFeD) 1000 mg IV x 1 dose. Orders placed and routed to appropriate parties at [facility]. Patient agreeable to intervention. Follow-up labs to be scheduled ~4-6 weeks after iron repletion completed if appropriate prior to delivery. Anemia Clinic will continue to follow. Thank you for allowing us to participate in the care of thispatient. Thanks, Lupe Sanchez [facility] Clinical Pharmacist [facility] Anemia Clinic (P: [phone]) 09/19/2023 2:27 PM documented in this encounter Plan of Treatment Upcoming Encounters Date Type Department Care Team (Late st Contact Info) Description 10/02/2023 10:00 AM EDT Pharmacy Pharmacy, [address] [address] Clinic, Anemia [address] [place] [address] 10/04/2023 8:30 AM EDT Office Visit Gynecology/Obstetrics [facility] [address] [place] [address] Kallie Page CNM [address] [place] [address] [place] [address] 10/18/2023 9:20 AM EDT Telemedicine Nutrition & Weight Management, [facility] [address] [place] [address] Ana Cristina Pruitt PA-C [address] [address] Scheduled Referrals Name Type Priority Associated Diagnoses [...] Primary documented in this encounter Care Teams Business System Manager Relationship Specialty Start Date End Date Radha Hawthorne DO [address] [address] PCP - General Family Medicine 02/18/18 documented as of this encounter
--- OUTSIDE RECORDS SUMMARY | 2023-11-08 14:02 | External Medical Summary ---
Author Name Unknown Address Unknown Organization [id number]:LABORATORY [facility] [place] - [address] [place] [address] Laboratory Report Ordering Provider Test Date Status GLO SWANSON 09/04/2023 11:20:45 Final Observation Date Value Abnormality Reference (Units ) Status WBC, Total 09/04/2023 11:20:45 12.94 Above high normal 4 .00-10.80 (K/uL) Final RBC 09/04/2023 11:20:45 3.46 3.85-5.15 (M/uL) Final Hemoglobin 09/04/2023 11:20:45 10.5 Below low normal 12 .0-15.3 (g/dL) Final Anemia reflex testing trigge rs on a HGB < 12.0 for Females and HGB < 13.0 for Males in accordance with the WHO Anemia Guidelines
Anemia reflex testing triggers on a HGB < 12.0 for Females and HGB < 13.0 for Males in accordance with the WHO Anemia Guidelines HCT 09/04/2023 11:20:45 32.9 Below low normal 36. 0-45.2 (%) Final MCV 09/04/2023 11:20:45 95.1 81.5-97.5 (fL) Final MCH 09/04/2023 11:20:45 30.3 27.0-34.0 (pg) Final MCHC 09/04/2023 11:20:45 31.9 32.0-36.0 (g/dL) Final RDW 09/04/2023 11:20:45 12.5 11.5-15.5 (%) Final Platelets 09/04/2023 11:20:45 242 140-400 (K /uL) Final MPV 09/04/2023 11:20:45 12.2 6.6-11.1 ( fL) Final Nucleated erythrocytes/100 leukocytes [Ratio] in Blood by Automated count 09/04/2023 11:20:45 0 <=0 (/100 WBCs) Final Performing Location LAB[facility]ATORY [facility] - [address] [facility] [address]
--- OUTSIDE RECORDS SUMMARY | 2023-11-08 14:02 | External Medical Summary | Summary of Care ---
Author Name Unknown Organization [facility] Address [address] [place] [facility] [place] [address] Phone [phone] Care Team Providers Care Remelt Furnace Expediter Name Role Phone John PaulRadha fox Manju CHRISTIE Primary Care Provider [phone] Encounter Details Date Type Department Care Team (Late st Contact Info) Description 09/19/2023 Orders Only Gynecology/Obstetrics [facility] [address] [place] [address] Odalys Jaimes PA-C [address] [place] [address] Iron deficiency anemia, unspecified iron deficiency anemia [...] Anxiety 07/11/2023 Supervision of normal first , anteisatuu m 04/23/2023 Obesity affecting 04/23/2023 Overview: Class [...] money to get more. Never true 04/23/2023 [place] Depression Scale Answer Date Recorded [place] Depression Scale Total 7 08/30/2023 The thought [...] Description 09/19/2023 4:00 PM EDT Pharmacy Pharmacy, [place] [address] [place] [address] Clinic, Anemia [address] [place] [address] Iron deficiency anemia, unspecified iron deficiency anemia type* 10/02/2023 10:00 AM EDT Pharmacy Pharmacy, [place] [address] [place] [address] Clinic, Anemia [address] [place] [address] 10/04/2023 8:30 AM EDT Office Visit Gynecology/Obstetric s [facility] [address] [place] [address] Kallie Page CNM [address] [place] [address] 10/18/2023 9:20 AM EDT Telemedicine Nutrition & Weight Management, [facility] [address] [place] [address] Ana Cristina Pruitt PA-C [address] [place] [address] Health Maintenance Due Date Last Done Comments [...] anemia, unspecified iron deficiency anemia type- Primary Iron deficiency anemia, unspecified iron deficiency anemia type- Primary documented in this encounter Care Teams Remelt Furnace Expediter Relationship Specialty Start Date End Date Radha Hawthorne DO [address] [place] [address] PCP - General Family Medicine 02/18/18 documented as of this encounter
--- OUTSIDE RECORDS SUMMARY | 2023-11-08 14:02 | External Medical Summary ---
Author Name Unknown Address Unknown Organization [id number]:[facility] [address] [facility] [address] Laboratory Report Ordering Provider Test Date Status GLO SWANSON 09/04/2023 11:20:45 Final Observation Date Value Abnormality Reference (Units ) Status SYNC LEUKOCYTES IN BLOOD BY AUTOMATED COUNT 09/04/2023 11:20:45 12.94 Above high normal 4.00-10.80 (K/uL) Final Segs 09/04/2023 11:20:45 77.9 Above high normal 40.0-75.0 (%) Final Lymphs % 09/04/2023 11:20:45 16.4 Below low normal 18.0-42.0 (%) Final Monos 09/04/2023 11:20:45 3.6 1.0-11.0 (%) Final Eosinophils 09/04/2023 11:20:45 0.5 0.0-6.0 (%) Final Basos 09/04/2023 11:20:45 0.3 0.0-2.0 (%) Final Immature Granulocyte, Percent 09/04/2023 11:20:45 1.3 0.0-2.0 (%) Final Absolute Segs 09/04/2023 11:20:45 10.08 Above high normal 1.80-7.70 (K/uL) Final Lymphs, absolute 09/04/2023 11:20:45 2.12 1.00-4.80 (K/ul) Final Monos, Abs 09/04/2023 11:20:45 0.47 0.00-1.10 (K/uL) Final Eos, Abs 09/04/2023 11:20:45 0.06 0.00-0.70 (K/uL) Final Basos, Abs 09/04/2023 11:20:45 0.04 0.00-0.20 (K/uL) Final Immature Granulocytes, Number 09/04/2023 11:20:45 0.17 0.00-0.20 (K/uL) Final Performing Location [facility] [address] [facility] [address]
--- OUTSIDE RECORDS SUMMARY | 2023-11-08 14:02 | External Medical Summary ---
Author Name Unknown Address Unknown Organization [id number]:[facility]ATORY [facility] - [address] [place] [address] Laboratory Report Ordering Provider Test Date Status GLO SWANSON 09/04/2023 11:20:45 Final Observation Date Value Abnormality Reference (Units ) Status Glucose [Moles/volume] in Serum or Plasma --1 hour post 50 g glucose PO 09/04/2023 11:20:45 122 70-129 (mg/dL) Final Performing Location LABORATORY [facility] [address] [place] [address]
--- OUTSIDE RECORDS SUMMARY | 2023-11-08 14:02 | External Medical Summary ---
Author Name Unknown Address Unknown Organization [id number]:[facility] [place] [address] [facility] [address] Laboratory Report Ordering Provider Test Date Status GLO SWANSON 09/04/2023 11:20:45 Final Observation Date Value Abnormality Reference (Units ) Status Treponema pallidum Ab [Presence] in Serum by Immunoassay 09/04/2023 11:20:45 Nonreactive Nonreactive Final No serologic evidence of syp hilis. No additional testing clinicially indicated at this time. Consider repeat testing in 2-4 weeks if acute or primary syphilis is suspected. Performing Location LAB[facility]ORY [facility] - [address] [place] [address]
--- OUTSIDE RECORDS SUMMARY | 2023-11-08 14:02 | External Medical Summary ---
Author Name Unknown Address Unknown Organization K01:LABORATORY [facility] - [address] [place] [address] Laboratory Report Ordering Provider Test Date Status GLO SWANSON 09/04/2023 11:20:45 Final Observation Date Value Abnormality Reference (Units ) Status Vitamin B12 09/04/2023 11:20:45 [phone] (pg/mL) Final Performing Location LABORATORY [facility] - [address] [place] [address]
--- OUTSIDE RECORDS SUMMARY | 2023-11-08 14:03 | External Medical Summary ---
Author Name Unknown Address Unknown Organization [id number]:[facility]ORATORY [facility] [place] - [facility] [place] [address] Laboratory Report Ordering Provider Test Date Status GLO SWANSON 09/04/2023 11:20:45 Final Observation Date Value Abnormality Reference (Units ) Status Creatinine 09/04/2023 11:20:45 0.6 0.5-1.0 (mg/dL) Final Glomerular filtration rate/1.73 sq M.predicted [Volume Rate/Area] in Serum, Plasma or Blood by Creatinine-based formula (CKD-EPI) 09/04/2023 11:20:45 >90 >=60 (mL/min) Final eGFR is calculated based on the CKD-EPI 2020 equation Performing Location LABORATORY [facility] [place] - [facility] [place] [place] [address]
--- OUTSIDE RECORDS SUMMARY | 2023-11-08 14:03 | External Medical Summary | Summary of Care ---
Author Name Unknown Organization [facility] Address [address] [place] [address] Phone [phone] Care Team Providers Care Pest Control Chemical Technician Name Role Phone Radha Hawthorne Manju CHRISTIE Primary Care Provider [phone] Reason for Visit * Reason Comments Return Visit Encounter Details Date Type Department Care Team (Late st Contact Info) Description 07/25/2023 3:15 PM EDT Office Visit Gynecology/Obstetric s [facility] [address] [place] [address] Hari Hanley MD [address] [place] [address] Supervision of normal first , antepartum*; Class 1 obesity due to excess calories with serious comorbidity in adult, unspecified BMI Allergies No known active allergiesdocumented as of this encounter (statuses as of 07/25/2023) Medications Medication Sig Dispensed Refills Start Date End Date Status Albuterol Sulfate HFA 108 (90 Base) MCG/ACT Inhalation Aerosol SolutionIndications: Dyspnea Inhale 2 Puffs by mouth 4 times a day as needed for Shortness of Breath. 18 g 5 11/22/2020 Active Triamcinolone Acetonide 0.1 % External Cream (Aristocort)Indicati ons:Eczema, unspecified type Apply to dry patches on the body twice daily as needed for flares. 60 g 2 03/26/2022 Active Famotidine 40 MG Oral Tablet (Pepcid) Take 1 Tablet by mouth at bedtime. 90 Tablet 3 01/17/2023 Active Promethazine HCl 25 MG Oral Tablet (Phenergan) Take 1 Tablet by mouth every 6 hours as needed for Nausea. 30 Tablet 1 04/16/2023 Active 28-0.8 MG Oral Tablet Take by mouth. Active documented as of this encounter (statuses as of 07/25/2023) Active Problems Problem Noted Date Diagnosed Date Anxiety 07/11/2023 Supervision of normal first , antepartu m 04/23/2023 Class 1 obesity in adult 04/23/2023 Overview: Early glucola Iron deficiency anemia 01/17/2023 KAVIN (generalized anxiety [...] as of this encounter (statuses as of 07/25/2023) Resolved Problems Problem Noted Date Diagnosed Date [...] as of this encounter (statuses as of 07/25/2023) Immunizations Name Administration Dates Next Due HPV [...] money to get more. Never true 04/23/2023 [place] Depression Scale Answer Date Recorded [place] Depression Scale Total 2 04/23/2023 The thought of harming myself has occurred to me . Never 04/23/2023 Estimated Date of Delivery Comme nts [...] Reading Time Taken Comments Blood Pressure 108/68 07/25/2023 3:30 PM EDT Pulse - - Temperature 37.2 C (98.9 F) 07/25/2023 3:30 PM ED T Respiratory Rate - - Oxygen Saturation - - Inhaled Oxygen Concentration - - Weight 96.2 kg (212 lb) 07/25/2023 3:30 PM EDT Height 162.6 cm (5' 4") 07/25/2023 3:30 PM EDT Body Mass Index 36.39 07/25/2023 3:30 PM EDT documented in this encounter Progress Notes * Hari Hanley MD - 07/25/2023 3:49 PM EDT Pt with complaints of abd pain over fundus No nausea or vomiting. No diarrhea or constipation. No fever Seen in ER 48 hrs ago- Sono done was nml FHR; 140 Fundus Tender to palpation Pt reassured documented in this encounter Nursing Notes * Nisa Patel LPN - 07/25/2023 3:30 PM EDT 22w5d Period cramp like pain starting Saturday, then had diarrhea and vomiting x 1. Has sharp pains in upper abdominal area. documented in this encounter Plan of Treatment Upcoming Encounters Date Type Department Care Team (Late st Contact Info) Description 08/02/2023 1:15 PM EDT Imaging Radiology [facility] 2nd [facility], [address] [place] [address] 08/05/2023 2:30 PM EDT Imaging Radiology [facility] 1st [facility], [address] [place] [address] 08/05/2023 3:00 PM EDT Imaging Radiology [facility] [address] [facility] [place] [address] 08/05/2023 4:30 PM EDT Office Visit Gynecology/Obstetrics [facility] 132 [facility] [place] [address] Odalys Jaimes PA-C [address] [place] [address] 09/06/2023 4:15 PM EDT Office Visit Gynecology/Obstetrics [facility] [address] [facility] [place] [address] Niyah Prasad, [facility], CN [address] [facility] [place] [address] 10/18/2023 9:20 AM EDT Telemedicine Nutrition & Weight Management, [facility] [address] [facility] [place] [address] Ana Cristina Pruitt PA-C [address] [facility] [place] [address] Health Maintenance Due Date Last Done Comments Pneumococcal Vaccine: Pediatrics (0 to 5 Years) and At-Risk Patients (6 to 64 Years) (1 of 2 - PCV) 1998 Depression Screening 10/16/2022 10/16/2021 COVID-19 Vaccine ( - season) 2022 Influenza Vaccine (FLU shot) (Season Ended) 2023 Pap Smear 04/23/2026 04/23/2023, 08/02, 05/25/2016, Additional history exists Cervical Cancer Screening 04/23/2028 HPV/Co-Test 04/23/2028 04/23/2023 DTaP,Tdap,and Td Vaccines (9 - Td or Tdap) 01/25/2031 01/25/2021, 06/06/2009, 02/09/2005, Additional history exists Hepatitis B Completed 10/01/1994, 06/02, 1992 GARDASIL-HPV IMMUNIZATION SERIES Completed 01/21/2007, 09/11/2006, 07/10/2006 MENINGOCOCCAL (MENACTRA/MENVEO) Aged Out 05/13/2007 No longer eligible based on patient's age to complete this topic documented as of this encounter Medical Devices Not on filedocumented as of this encounter Visit Diagnoses Diagnosis Supervision of normal first , antepartum- Primary Class 1 obesity due to excess calories with serious comorbidity in adult, unspecified BMI documented in this encounter Care Teams Pest Control Chemical Technician Relationship Specialty Start Date End Date Radha Hawthorne DO [address] [facility] [place] [address] PCP - General Family Medicine 02/18/18 documented as of this encounter
--- OUTSIDE RECORDS SUMMARY | 2023-11-08 14:03 | External Medical Summary ---
Author Name Unknown Address Unknown Organization K01:[facility] - [address] [place] [address] Laboratory Report Ordering Provider Test Date Status SKYGLO 08/30/2023 12:13:46 Final Observation Date Value Abnormality Reference (Units) Status Bacteria identified in Specimen by Culture 08/30/2023 12:13:46 No significant growth Final Test: Culture, Urine, Quanti tative
Specimen Source: Urine, Clean Catch
Specimen Type: Urine
Specimen Date: 08/30/2023 1213
Result Date: 08/31/2023 1208
Result Status: Final result
Resulting Lab: [facility]
[address]
[place] [id number]

CULTURE

No significant growth

null Performing Location [facility] - [address] [place] [id number]
--- OUTSIDE RECORDS SUMMARY | 2023-11-08 14:03 | External Medical Summary | Summary of Care ---
Author Name Unknown Organization [facility] Address [address] [place] [address] Phone [phone] Care Team Providers Care Volunteer Specialist Name Role Phone Radha Hawthorne Manju CHRISTIE Primary Care Provider [phone] Reason for Visit * Reason Comments Return Visit Encounter Details Date Type Department Care Team (Late st Contact Info) Description 08/05/2023 4:30 PM EDT Office Visit Gynecology/Obstetric s [facility] [address] [place] [address] Odalys Jaimes PA-C [address] [place] [address] Supervision of normal first , antepartum*; Class 1 obesity with body mass index (BMI) of 31.0 to 31.9 in adult, unspecified obesity type, unspecified whether serious comorbidity present Allergies No known active allergiesdocumented as of this encounter (statuses as of 08/05/2023) Medications Medication Sig Dispensed Refills Start Date [...] as of this encounter (statuses as of 08/05/2023) Active Problems Problem Noted Date Diagnosed Date [...] as of this encounter (statuses as of 08/05/2023) Resolved Problems Problem Noted Date Diagnosed Date [...] as of this encounter (statuses as of 08/05/2023) Immunizations Name Administration Dates Next Due HPV [...] money to get more. Never true 04/23/2023 [place] Depression Scale Answer Date Recorded [place] Depression Scale Total 2 04/23/2023 The thought [...] Sign Reading Time Taken Comments Blood Pressure 106/58 08/05/2023 3:54 PM EDT Pulse - - Temperature - - Respiratory Rate - - Oxygen Saturation - - Inhaled Oxygen Concentration - - Weight 95.7 kg (211 lb) 08/05/2023 3:54 PM EDT Height - - Body Mass Index 36.22 07/25/2023 3:30 PM EDT documented in this encounter Progress Notes * Odalys Jaimes PA-C - 08/05/2023 3:59 PM EDT 24w2d Denies LOF, VB, contractions. Baby is active. Continues with intermittent nausea/vomiting and headaches. Has medication for nausea and helpful. Headaches improving. Uses Tylenol only on occasion. Had migraines prior to . Discussed OTC Magnesium and Vitamin B2 400 mg daily. Reviewed Tdap and recommendations. Third tri labs ordered. Given 28 week packet. RTC in 4 weeks Odalys Jaimes PA-C * Yulissa Donato MED ASSIST - 08/05/2023 3:54 PM EDT 24w2d No concerns Vaginal bleeding: no ROM: no movement: present Contractions: no Nausea: yes Vomiting: yes Headaches: yes documented in this encounter Plan of Treatment Upcoming Encounters Date Type Department Care Team (Late st Contact Info) Description 09/02/2023 11:10 AM EDT Laboratory Laboratory, [facility] [address] [place] [phone] Remy [facility]s [address] [place] [address] 09/02/2023 11:15 AM EDT Office Visit Gynecology/Obstetrics [facility] [address] [facility] [place] [address] Odalys Jaimes PA-C [address] [place] [address] 09/06/2023 4:15 PM EDT Office Visit Gynecology/Obstetrics [facility] 132 [facility] [place] [address] Niyah Prasad, DNP, CNM [address] [facility] [place] [address] 10/18/2023 9:20 AM EDT Telemedicine Nutrition & Weight Management, [facility] [place] [address] Ana Cristina Pruitt PA-C [address] [facility] [place] [address] Scheduled Orders Name Type Priority Associated Diagnoses Orde r Schedule 50-G GESTATIONAL GLUCOSE, 1 HOUR Lab Routine Supervision of normal first , antepartum Expected: 08/19/2023, Expires: 08/04/2024 SYPHILIS ANTIBODY SCREEN WITH REFLEX TO RPR Lab Routine Supervision of normal first , antepartum Expected: 08/19/2023, Expires: 08/04/2024 CBC WITH WBC DIFFERENTIAL AND ANEMIA REFLEX WORKUP Lab Routine Supervision of normal first , antepartum Expected: 08/19/2023, Expires: 08/04/2024 Health Maintenance Due Date Last Done Comments Pneumococcal Vaccine: Pediatrics (0 to 5 Years) and At-Risk Patients (6 to 64 Years) (1 of 2 - PCV) 1998 Depression Screening 10/16/2022 10/16/2021 COVID-19 Vaccine ( - 2022- season) 2022 Influenza Vaccine (FLU shot) (Season Ended) 2023 Pap Smear 04/23/2026 04/23/2023, 08/02, 05/25/2016, Additional history exists Cervical Cancer Screening 04/23/2028 HPV/Co-Test 04/23/2028 04/23/2023 DTaP,Tdap,and Td Vaccines (9 - Td or Tdap) 01/25/2031 01/25/2021, 06/06/2009, 02/09/2005, Additional history exists Hepatitis B Completed 10/01/1994, 06/02, 06/20/1993, Additional history exists GARDASIL-HPV IMMUNIZATION SERIES Completed 01/21/2007, 09/11/2006, 07/10/2006 MENINGOCOCCAL (MENACTRA/MENVEO) Aged Out 05/13/2007 No longer eligible based on patient's age to complete this topic documented as of this encounter Medical Devices Not on filedocumented as of this encounter Visit Diagnoses Diagnosis Supervision of normal first , antepartum- Primary Class 1 obesity with body mass index (BMI) of 31.0 to 31.9 in adult, unspecified obesity type, unspecified whether serious comorbidity present documented in this encounter Care Teams Volunteer Specialist Relationship Specialty Start Date End Date Radha Hawthorne DO [address] [facility] [place] [address] PCP - General Family Medicine 02/18/18 documented as of this encounter
--- OUTSIDE RECORDS SUMMARY | 2023-11-08 14:03 | External Medical Summary | Summary of Care ---
Author Name Unknown Organization [facility] Address [address] [place] [address] Phone [phone] Care Team Providers Care Track Welder Name Role Phone John PaulRadha fox Manju CHRISTIE Primary Care Provider [phone] Encounter Details Date Type Department Care Team (Late st Contact Info) Description 07/25/2023 Telephone Gynecology/Obstetrics [facility] [address] [place] [address] Hari Hanley MD [address] [place] [address] Allergies No known active allergiesdocumented as of [...] money to get more. Never true 04/23/2023 [place] Depression Scale Answer Date Recorded [place] Depression Scale Total 2 04/23/2023 The thought [...] Telephone Encounter - Karen Newman RN - 07/25/2023 11:03 AM EDT Patient calling in states that she was in ER earlier this week for N/V/diarrhea and abd pain. Patient still having ongoing abd pain. No diarrhea/N/V or fever/chills. Denies any vaginal bleeding, fluid leaking. Concerned about continued abd pain. Patient spoke with triage yesterday who reviewed withDr. Clark and she advised regular follow up. Patient now would like to follow up sooner. Offered appt today and patient accepted. Patient also encouraged to follow up with PCP and made aware this may not be related. Patient will also call PCP but prefers to keep BRONWYN appt. [facility] records in chart. documented in this encounter Plan of Treatment Upcoming Encounters Date Type Department Care Team (Late st Contact Info) Description 07/25/2023 3:15 PM EDT Office Visit Gynecology/Obstetrics [facility] [address] [place] [address] Hari Hanley MD [address] [place] [address] 08/02/2023 1:15 PM EDT Imaging Radiology [facility] 2nd [facility] [address] [place] [address] 08/05/2023 2:30 PM EDT Imaging Radiology [facility] 1st [facility] [address] [place] [address] 08/05/2023 3:00 PM EDT Imaging Radiology [facility] [address] [place] [address] 08/05/2023 4:30 PM EDT Office Visit Gynecology/Obstetrics [facility] [address] [place] [address] Odalys Jaimes PA-C [address] [place] [address] 09/06/2023 4:15 PM EDT Office Visit Gynecology/Obstetrics [facility] [address] [place] [address] Niyah Prasad, DNP, CNM [address] [place] [address] 10/18/2023 9:20 AM EDT Telemedicine Nutrition & Weight Management, [facility] [address] [place] [address] Ana Cristina Pruitt PA-C [address] [place] [address] Health Maintenance Due Date Last Done Comments [...] filedocumented as of this encounter Care Teams Track Welder Relationship Specialty Start Date End Date Radha Hawthorne DO [address] [place] [address] PCP - General Family Medicine 02/18/18 documented as of this encounter
--- OUTSIDE RECORDS SUMMARY | 2023-11-08 14:03 | External Medical Summary ---
Author Name Unknown Address Unknown Organization K01:[facility] - [address] [place] [address] Laboratory Report Ordering Provider Test Date Status GLO SWANSON 09/04/2023 11:20:45 Final Observation Date Value Abnormality Reference (Units ) Status Folic Acid 09/04/2023 11:20:45 >20.0 >4.5 (ng/ mL) Final Performing Location [facility] - [address] [place] [address]
--- OUTSIDE RECORDS SUMMARY | 2023-11-08 14:03 | External Medical Summary ---
Author Name Unknown Address Unknown Organization K01:[facility] - [address] [place] [address] Laboratory Report Ordering Provider Test Date Status GLO SWANSON 09/04/2023 11:20:45 Final Observation Date Value Abnormality Reference (Units ) Status Ferritin 09/04/2023 11:20:45 32 13-150 (ng /mL) Final Performing Location [facility] - [address] [place] [address]
--- OUTSIDE RECORDS SUMMARY | 2023-11-08 14:03 | External Medical Summary | Summary of Care ---
Author Name Unknown Organization [facility] Address [address] [place] [address] Phone [phone] Care Team Providers Care Wing Commander Name Role Phone Radha Hawthorne Manju CHRISTIE Primary Care Provider [phone] Reason for Visit * Reason Comments Return Visit Encounter Details Date Type Department Care Team (Late st Contact Info) Description 08/30/2023 11:00 AM EDT Office Visit Gynecology/Obstetric s [facility] [address] [place] [address] Odalys Jaimes PA-C [address] [place] [address] Supervision of normal first , antepartum*; Class 1 obesity in adult, unspecified BMI, unspecified obesity type, unspecified whether serious comorbidity present; THERESA (amniotic fluid index) borderline low; Pelvic cramping Allergies No known active allergiesdocumented as of this encounter (statuses as of 08/30/2023) Medications Medication Sig Dispensed Refills Start Date End Date Status Albuterol Sulfate HFA 108 (90 Base) MCG/ACT Inhalation Aerosol SolutionIndications :Dyspnea Inhale 2 Puffs by mouth 4 times a day as needed for Shortness of Breath. 18 g 5 11/22/2020 Active Triamcinolone Acetonide 0.1 % External Cream (Aristocort)Indicat ions:Eczema, unspecified type Apply to dry patches on the body twice daily as needed for flares. 60 g 2 03/26/2022 Active Additional Information Patient not taking.Reported on 08/30/2023 Famotidine 40 MG Oral Tablet (Pepcid) Take 1 Tablet by mouth at bedtime. 90 Tablet 3 01/17/2023 Active Promethazine HCl 25 MG Oral Tablet (Phenergan) Take 1 Tablet by mouth every 6 hours as needed for Nausea. 30 Tablet 1 04/16/2023 Active Additional Information Patient not taking.Reported on 08/30/2023 28-0.8 MG Oral Tablet Take by mouth. Active documented as of this encounter (statuses as of 08/30/2023) Active Problems Problem Noted Date Diagnosed Date Anxiety 07/11/2023 Supervision of normal first anya 04/23/2023 Class 1 obesity in adult 04/23/2023 [...] as of this encounter (statuses as of 08/30/2023) Resolved Problems Problem Noted Date Diagnosed Date [...] as of this encounter (statuses as of 08/30/2023) Immunizations Name Administration Dates Next Due DTaP Dipth/Tet/Acell Pertussis (Infanrix), Peds 01/19/1997,03/12/1994,06/12/1993,04/17,02/13/1993 HPV Vaccine, 4-Valent 01/21/2007,09/11/2006,050 11/2006 Haemophilius B (HIB), unspecified 1994,06/12/1993,04/17/1993,02/13 Hepatitis B [...] money to get more. Never true 04/23/2023 [place] Depression Scale Answer Date Recorded [place] Depression Scale Total 7 08/30/2023 The thought [...] Sign Reading Time Taken Comments Blood Pressure 112/70 08/30/2023 10:59 AM EDT Pulse - - Temperature - - Respiratory Rate - - Oxygen Saturation - - Inhaled Oxygen Concentration - - Weight 97.1 kg (214 lb) 08/30/2023 10:59 AM EDT Height 162.6 cm (5' 4") 08/30/2023 10:59 AM EDT Body Mass Index 36.73 08/30/2023 10:59 AM EDT documented in this encounter Progress Notes * Odalys Jaimes PA-C - 08/30/2023 12:29 PM EDT 27w6d Here for acute visit. Notified clinic yesterday regarding c/o intermittent cramping. Reports worse with walking, improves with rest. Denies dysuria. Had ultrasound done at recommendation of another provider for cervical length. Cervical length normal. THERESA noted to be lower end of normal at 7.7 cm with normal MVP 3.2 cm. Denies VB, LOF. Baby is active. Having vaginal discharge throughout , not soaking pad or mucus like. Has been trying to push fluids. Initial concern for fluid levels and need for MFM referral/surveillance. call center representative MFM provider consulted via tiger text today regarding plan of care. Agreed no indication for referral or NST at this time based on fluid levels, will have patient push fluids and repeat sono in 1 week. UA negative, urine culture collected. Pelvic exam: External genitalia and vagina anatomy within normal limits, No significant vulvar lesions, No significant vaginal discharge, Cervix normal in appearance without lesions or purulent discharge, cervix visually closed, no pooling at cervical os and no blood in vaginal vault. Nitrazine test negative. No lof with valsalva. [employer] Consultant Documentation Provider requested chief reservoir engineering. Name of chief reservoir engineering: JOSELYN Jones A/P: Cervix closed. Recommended push fluids, belly support band, tylenol PRN, and rest. Notify office ifnot improve. Repeat sono in 1 week for THERESA Urine culture ordered RTC in 1 week for BRONWYN with U/S -- third tri lab then Odalys Jaimse PA-C documented in this encounter Nursing Notes * Karen Newman RN - 08/30/2023 11:00 AM EDT Patient here for BRONWYN visit Having low pelvic cramping x 1 week + FM No leaking or bleeding No contractions Karen Newman RN documented in this encounter Plan of Treatment Upcoming Encounters Date Type Department Care Team (Late st Contact Info) Description 09/04/2023 10:20 AM EDT Laboratory Laboratory, [facility] [address] [place] [place] [phone] [facility] [address] [place] [place] [address] 09/04/2023 10:30 AM EDT Imaging Radiology [facility] 2nd Floor, [place] [address] [place] [place] [address] 09/04/2023 11:15 AM EDT Office Visit Gynecology/Obstetrics [facility] [address] [place] [address] BackerKim CRNP [address] [place] [address] 10/18/2023 9:20 AM EDT Telemedicine Nutrition & Weight Management, [facility] [address] [place] [place] [address] Ana Cristina Pruitt PA-C [address] [place] [address] Pending Results Name Type Priority Associated Diagnoses Date /Time CULTURE, URINE, QUANTITATIVE Lab Routine Pelvic cramping 08/30/2023 12:13 PM EDT Scheduled Orders Name Type Priority Associated Diagnoses Orde r Schedule US PREG LIMITED 1 OR MORE FETUSES Medical Imaging Routine Supervision of normal first , antepartum THERESA (amniotic fluid index) borderline low Expected: 08/31/2023, Expires: 09/28/2024 Health Maintenance Due Date Last Done Comments [...] Not on filedocumented as of this encounter Procedures Procedure Name Priority Date/Time Associated Diagnosis Comments URINALYSIS, POINT OF CARE (ENTER/EDIT) Routine 08/30/2023 Supervision of normal first , antepartum documented in this encounter Results * URINALYSIS, POINT OF CARE (ENTER/EDIT) (08/30/2023) Color, Urine Yellow Yellow or Light Yellow Clarity, Urine Clear Clear Glucose, Urine Negative Negative mg/dL Bilirubin, Urine Negative Negative Ketone, Urine Negative Negative mg/dL Specific [place], Urine 1.010 1.003 - 1.030 Blood, Urine Negative Negative pH, Urine 7.0 5.0 - 7.5 units Protein, Urine Negative Negative mg/dL Urobilinogen, Urine 0.2 0.2 - 1.0 mg/dL Nitrite, Urine Negative Negative Esterase, Urine Negative Negative Urine 08/30/2023 Odalys Jaimes PA-C LAB POINT OF CARE TE ST ENTER/EDIT ORDERABLES documented in this encounter Visit Diagnoses Diagnosis Supervision of normal first , antepartum- Primary Class 1 obesity in adult, unspecified BMI, unspecified obesity type, unspecified whether serious comorbidity present THERESA (amniotic fluid index) borderline low Nonspecific abnormal finding in amniotic fluid Pelvic cramping Unspecified symptom associated with female genital organs documented in this encounter Care Teams Wing Commander Relationship Specialty Start Date End Date Radha Hawthorne DO [address] [facility] [place] [address] PCP - General Family Medicine 02/18/18 documented as of this encounter
--- OUTSIDE RECORDS SUMMARY | 2023-11-08 14:03 | External Medical Summary | Summary of Care ---
Author Name Unknown Organization [facility] Address [address] [place] [address] Phone [phone] Care Team Providers Care Label Coder Name Role Phone Radah Hawthorne Manju CHRISTIE Primary Care Provider [phone] Reason for Visit * Reason Comments Return Visit Encounter Details Date Type Department Care Team (Late st Contact Info) Description 08/30/2023 11:00 AM EDT Office Visit Gynecology/Obstetric s Louise Downs [address] [place] [address] Odalys Jaimes PA-C [address] [place] [address] Supervision of normal first , antepartum*; Class [...] Overview: Early glucola Iron deficiency anemia 01/17/2023 KAVNI (generalized anxiety disorder) 01/17/2023 Screening for lipid [...] 08/30/2023) Immunizations Name Administration Dates Next Due HPV [...] money to get more. Never true 04/23/2023 [place] Depression Scale Answer Date Recorded [place] Depression Scale Total 2 04/23/2023 The thought of harming myself has occurred to me . Never 04/23/2023 Childcare Answer Date Recorded Do you feel [...] No 04/23/2023 Does the household have a [facility] source [facility]? (Household - for [...] VB, LOF. Baby is active. Having vaginal discharge, not soaking pad or mucus like. Has been trying to push fluids. Initial concern for fluid levels and need for MFM referral/surveillance. medical massage therapist MFM provider consulted via tiger text today [...] Nitrazine test negative. No lof with valsalva. Lamp Wirer Documentation Provider requested supervisor soldering. Name of supervisor soldering: JOSELYN Jones A/P: Cervix closed. Recommended push fluids, belly support band, tylenol PRN, and rest. Notify office ifnot improve. Repeat sono in 1 week for THERESA Urine culture ordered RTC in 1 week for BRONWYN with U/S -- third tri lab then Odalys Jaimes PA-C documented in this encounter Nursing Notes * Karen Newman RN - 08/30/2023 11:00 AM EDT Patient here for BRONWYN visit Having low pelvic cramping x 1 week + FM No leaking or bleeding No contractions Karen J Corl, RN documented in this encounter Plan of Treatment Upcoming Encounters Date Type Department Care Team (Late st Contact Info) Description 09/04/2023 10:20 AM EDT Laboratory Laboratory, [facility] [address] [facility] [place] [id number] [facility] [address] [facility] [place] [address] 09/04/2023 10:30 AM EDT [facility] [address] [place] [address] 09/04/2023 11:15 AM EDT Office Visit Gynecology/Obstetrics [address] [place] [address] Kim Atkinson CRNP [address] [facility] [place] [address] 10/18/2023 9:20 AM EDT Telemedicine Nutrition & Weight Management, [facility] [address] [facility] [place] [address] Ana Cristina Pruitt PA-C [address] [facility] [place] [address] Pending Results Name Type Priority Associated Diagnoses [...] Screening 10/16/2022 10/16/2021 COVID-19 Vaccine (1 - 2023-24 season) 2022 Influenza Vaccine (FLU shot) (Season [...] Negative Ketone, Urine Negative Negative mg/dL Specific [place], Urine 1.010 1.003 - 1.030 Blood, Urine [...] organs documented in this encounter Care Teams Label Coder Relationship Specialty Start Date End Date Radha Hawthorne DO [address] [place] [address] PCP - General Family Medicine 02/18/18 documented as of this encounter
--- OUTSIDE RECORDS SUMMARY | 2023-11-08 14:03 | External Medical Summary | Summary of Care ---
Author Name Unknown Organization [facility] Address [address] [place] [address] Phone [phone] Care Team Providers Care Lead Fabricator Name Role Phone Radha Hawthorne Manju CHRISTIE Primary Care Provider [phone] Reason for Visit * Reason Comments Return Visit Encounter Details Date Type Department Care Team (Late st Contact Info) Description 08/30/2023 11:00 AM EDT Office Visit Gynecology/Obstetric s Louise Downs [address] [place] [address] Odalys Jaimes PA-C [address] [place] [address] Supervision of normal first , antepartum*; Class [...] money to get more. Never true 04/23/2023 Moran Depression Scale Answer Date Recorded Moran Depression Scale Total 7 08/30/2023 The thought [...] and need for MFM referral/surveillance. call center associate MFM provider -- Dr. Beltran consulted via tiger text today regarding plan of care. Agreedno indication for referral or NST at this time based on fluid levels, will have patient push fluidsand repeat sono in 1 week. Pelvic exam: External genitalia and vagina anatomy within normal limits, No significant vulvar lesions, No significant vaginal discharge, Cervix normal in appearance without lesions or purulent discharge, cervix visually closed, no pooling at cervical os and no blood in vaginal vault. Nitrazine test negative. No lof with valsalva. Hr Associate Documentation Provider requested bag grader. Name of bag grader: Karen, RN A/P: Cervix closed. Recommended push fluids, belly support band, tylenol PRN, and rest. Notify office ifnot improve. Repeat sono in 1 week for THERESA UA negative, urine culture collected. RTC in 1 week for BRONWYN with [...] Description 09/04/2023 10:20 AM EDT Laboratory Laboratory, [facility] [address] [place] [phone] [facility] [address] [place] [address] 09/04/2023 10:30 AM EDT Imaging Radiology [facility] 2nd Floor, [place] [address] [place] [address] 09/04/2023 11:15 AM EDT Office Visit Gynecology/Obstetrics [facility] [address] [place] [address] [place], TERI Chung [address] [place] [address] 10/18/2023 9:20 AM EDT Telemedicine Nutrition & Weight Management, [facility] [address] [place] [address] Ana Cristina Pruitt PA-C [address] [place] [address] Pending Results Name Type Priority Associated Diagnoses [...] Negative Ketone, Urine Negative Negative mg/dL Specific [place], Urine 1.010 1.003 - 1.030 Blood, Urine [...] organs documented in this encounter Care Teams Lead Fabricator Relationship Specialty Start Date End Date Radha Hawthorne DO [address] [facility] [place] [address] PCP - General Family Medicine 02/18/18 documented as of this encounter
--- NOTE | 2023-11-08 17:07 | Obstetrical Progress Note ---
Date of Service November 08, 2023 Assessment & Plan Admission and Anticipated Discharge Date Admission Date: November 08, 2023 Subjective Patient started to have painful contractions for the last 2 hours, getting worse, desires epidural for pain VE; 3/ 70%/ -2, FHR categ I Mckinley ctxs q 1-3 min Continue to monitor closely Epidural for pain Results & Data Vital Signs (Past 12 Hours) Vital Signs Temp Pulse Resp BP 11/08/23 15:50 71 127/72 11/08/23 13:32 18 11/08/23 13:32 36.7 C 18 11/08/23 11:52 36.9 C 18 11/08/23 11:06 85 128/73
[2023-11-08] MEDS: fentANYL 2 MCG/ML BUPIVacaine 0.125%-NSS 100ML BAG ONE (17:47)
[2023-11-08] MEDS: BUPIVACAINE 0.25% PF 30 ML VIAL ONE (17:48)
[2023-11-08] MEDS: LIDOCAINE 2%/EPINEPHRINE 1:200,000 20 ML PF ONE (17:48)
[2023-11-08] MEDS: fentaNYL citrate PF 100 MCG/2 ML VIAL ONE (17:49)
[2023-11-08] MEDS: SODIUM CHLORIDE 0.9% PF INJ 10 ML VIAL ONE (17:49)
[2023-11-08] MEDS ORDERED: ROPIVACAINE 0.5% PF 5 MG/ML 20 ML VIAL EPI PRN (17:57)
[2023-11-08] MEDS ORDERED: NALOXONE HCL 0.4 MG/1 ML VIAL/CARP IV PRN (17:57)
[2023-11-08] MEDS ORDERED: BUPIVACAINE 0.25% PF 30 ML VIAL EPI PRN (17:57)
[2023-11-08] MEDS ORDERED: LIDOCAINE 2% MPF LOCAL 5 ML VIAL EPI PRN (17:57)
[2023-11-08] MEDS ORDERED: NALBUPHINE HCL INJ 10 MG/ML AMP IV PRN (17:57)
[2023-11-08] MEDS ORDERED: fentaNYL citrate PF 100 MCG/2 ML VIAL EPI PRN (17:57)
[2023-11-08] MEDS ORDERED: NALOXONE HCL 1 MG in SODIUM CHLORIDE 0.9% 1,000 ML IV PRN (17:57)
[2023-11-08] MEDS ORDERED: SODIUM CHLORIDE 0.9% PF INJ 10 ML VIAL EPI PRN (17:57)
[2023-11-08] MEDS ORDERED: fentANYL 2 MCG/ML BUPIVacaine 0.125%-NSS 100ML BAG EPI PRN (17:57)
[2023-11-08] MEDS ORDERED: diphenhydrAMINE 50 MG/ML VIAL IV PRN (17:57)
[2023-11-08] MEDS ORDERED: ePHEDrine sulfate 50 MG/ML AMP IV PRN (17:57)
--- NOTE | 2023-11-08 17:58 | Anesthesiology Consultation ---
Date of Service November 08, 2023 Assessment & Plan Chart Review Chart Review: Acceptable Risk for Labor Epidural Consults Requested none History Height/Weight Height: 5 ft 4 in Weight: 104.78 kg Allergies Allergy/AdvReac Type Severity Reaction Status Date / Time No Known Allergies Allergy Unverified 07/23/23 18:38 Medications Home Medications Medication Instructions Recorded Confirmed Last Taken famotidine 40 mg tablet 40 mg PO HS 07/23/23 11/08/23 11/07/23 vit no.95-ferrous 1 tab PO DAILY 11/08/23 11/08/23 11/07/23 fumarate 28 mg-folic acid 800 mcg tablet () Active Medications Generic Name Dose Route Start Last Admin Trade Name Freq PRN Reason Stop Dose Admin Lactated Ringer's 1,000 mls @ 150 mls/hr 11/08/23 11:46 11/08/23 17:24 Lr IV 11/10/23 11:45 999 mls/hr .[id number] PRN Administration L&D Protocol Protocol Social History Smoking Status: Never smoker Hx Alcohol Use: No Hx Substance Use: No Physical Exam Vital Signs Last Vital Signs Temp 36.8 C 11/08/23 17:20 Pulse 79 11/08/23 17:56 Resp 18 11/08/23 13:32 BP 127/60 11/08/23 17:56 Pulse Ox 100 11/08/23 17:56 Testing Laboratory Results 11/08/23 11:46 Blood Type O Positive 11/08/23 11:46 Antibody Screen NEGATIVE 11/08/23 11:46
[2023-11-08] MEDS: LIDOCAINE 2%/EPINEPHRINE 1:200,000 20 ML PF EPI STA (18:27)
[2023-11-08] MEDS: BUPIVACAINE 0.25% PF 30 ML VIAL EPI STA (18:27)
[2023-11-08] MEDS: fentaNYL citrate PF 100 MCG/2 ML VIAL EPI STA (18:27)
[2023-11-08] MEDS: SODIUM CHLORIDE 0.9% PF INJ 10 ML VIAL EPI STA (18:28)
[2023-11-08] MEDS: CALCIUM CARBONATE 500 MG CHEWABLE TAB PO PRN (19:05)
[2023-11-08] MEDS: FAMOTIDINE 40 MG TABLET PO SCH (20:01)
[2023-11-08] MEDS: OXYTOCIN 30 UNITS/NSS 30 UNITS/500 ML BAG IV PRN (20:20)
[2023-11-09] MEDS: miSOPROStoL 200 MCG TAB PR ONE (00:36)
[2023-11-09] MEDS: ceFAZolin 2000MG 2,000 MG/15 ML SYR IV STA (00:38)
[2023-11-09] MEDS ORDERED: oxyCODONE/ACETAMINOPHEN 5mg/325mg TAB PO PRN (00:46)
[2023-11-09] MEDS ORDERED: HYDROCORTISONE ACETATE 25 MG SUPP PR PRN (00:46)
[2023-11-09] MEDS ORDERED: MEASLES, MUMPS & RUBELLA VIRUS VACCINE (MMR) 0.5ML VIAL SQ ONE (00:46)
[2023-11-09] MEDS ORDERED: OXYTOCIN 30 UNITS/NSS 30 UNITS/500 ML BAG IV PRN (00:46)
--- NOTE | 2023-11-09 00:55 | Delivery Summary ---
Vaginal Delivery Summary Date of Service November 09, 2023 Vaginal Delivery Summary Patient was found to be fully dilated and desires to push. She pushed for about half an hour min and delivered the head and then shoulders with minimal traction at 0014. The baby was handed off to the mother. The cord was clampedx2 and cut at 1 minute. The vagina and perineum were checked and found to have 2nd degree perineal laceration. Rectal exam was done and noted good sphincter tone. The gloves were changes. The vaginal mucosa was repaired with 2/0 vicryl and skin on subcuticular fashion. The placenta was delivered spontaneously as intact and complete. The uterus was explored and some cloths were emptied, no tissue nor membranes felt. QBL was 453 ml. The fundus was firm The baby was a viable female , Apgars 8/9, the weight is pending. The mother and the baby tolerated the procedure well. No complications happened and I was present during whole procedure.
[2023-11-09] MEDS: MINERAL OIL 30 ML UDC ONE (01:01)
[2023-11-09] MEDS: ePHEDrine sulfate 50 MG/ML AMP ONE (02:32)
[2023-11-09] MEDS: DOCUSATE SODIUM 100 MG CAP PO SCH (08:58)
[2023-11-09] MEDS: FERROUS SULFATE 325 MG TAB PO SCH (08:59)
[2023-11-09] MEDS: PRENATAL VITAMIN 1 TAB PO SCH (08:59)
[2023-11-09] MEDS: IBUPROFEN 600 MG TAB PO PRN (09:00)
[2023-11-09] MEDS ORDERED: PRENATAL VITAMIN 1 TAB PO SCH (09:00)
[2023-11-09] MEDS: BENZOCAINE 20% SPRY 85 APPLN/85 GM CAN EXT PRN (09:09)
--- NOTE | 2023-11-09 10:08 | Anesthesia Procedure Note ---
Date of Service November 09, 2023 Anesthesia Post Epidural Note Vital Signs Vital Signs: Temp Pulse Resp BP Pulse Ox O2 Del Method 98.4 F 86 18 121/66 99 Room Air 11/09/23 08:50 11/09/23 08:50 11/09/23 08:50 11/09/23 08:50 11/09/23 03:03 11/09/23 08:50 Pain Intensity Abdomen: Pain Intensity: 2 Notes Mental Status: alert / awake / arousable and participated in evaluation Nausea / Vomiting: adequately controlled Pain: adequately controlled Airway Patency, RR, SpO2: stable & adequate BP & HR: stable & adequate Hydration State: stable & adequate Neuraxial Anesthesia: was administered and sensory block is resolving Anesthetic Complications: no major complications apparent and Pt Satisfied with anesthetic care Epidural: Removed without complications and With tip intact
[2023-11-09] MEDS: ACETAMINOPHEN 325 MG TAB PO PRN (12:12)
[2023-11-09 22:03] VITALS: RESP 16
[2023-11-10 06:51] LABS: Hemoglobin 9.6 g/dl (12.0-16.0); Mean Corpuscular Hemoglobin 30.4 pg (25.0-34.0); Mean Corpuscular Hgb Conc 33.1 g/dL (32.0-36.0); Mean Corpuscular Volume 91.8 fL (80.0-100.0); Mean Platelet Volume 12.8 fL (9.4-12.4); Platelet Count 207 K/uL (130-400); RDW Coefficient of Variation 13.2 % (11.5-14.5); RDW Standard Deviation 44.1 fL (36.4-46.3); Red Blood Count 3.16 M/uL (4.20-5.40); White Blood Count 11.84 K/ul (4.8-10.8)
[2023-11-10] MEDS: DIPHTHER/TETAN/PERTUS Vaccine (Tdap, Adol/Adult) 0.5mL IM ONE (07:26)
[2023-11-10 08:19] VITALS: BP 121/82; PULSE 66; TEMP 97.7; O2SAT 100
--- NOTE | 2023-11-10 10:02 | Obstetrical Progress Note ---
Date of Service November 10, 2023 Assessment & Plan Admission and Anticipated Discharge Date Admission Date: November 08, 2023 OB Progress Note abdomen soft and non tender no calf tenderness ambulating well vaginal bleeding scant hgb 9.6 patient requests discharge Results & Data Vital Signs (Past 12 Hours) Vital Signs Temp Pulse Resp BP Pulse Ox O2 Del Method 11/10/23 07:51 36.5 C 66 16 121/82 100 Room Air 11/09/23 23:33 36.6 C 80 16 115/71 97 Room Air
[2023-11-10] MEDS ORDERED: bisacodyL 5 MG TABEC PO SCH (20:00)
[2023-11-11] MEDS ORDERED: bisacodyL 10 MG SUPP PR PRN
== END 2023-11-10 13:16 | disposition home or self-care (01) | DRG 807 ==
LOC: OPB 10:50 → 4S1 10:52 → 4E2 11-09 03:24